=== PATIENT | male | born 1955 | race Caucasian/White ===

== ENCOUNTER → 2023-12-25 12:15 | Outpatient (REF) | payer OTHER, SELFPAY | LOC: HWRAD 12:15 | PROVIDERS: ATTENDING PHYSICIAN Colon & Rectal Surgery; FAMILY PHYSICIAN Family Medicine | DX: C20 Malignant neoplasm of rectum (principal) | CPT/HCPCS: 71260; 74177; Q9967 ==

== ENCOUNTER → 2024-01-15 11:55 | Outpatient (REF) | payer SELFPAY | LOC: CLAB 11:55 | PROVIDERS: ATTENDING PHYSICIAN Surgery | DX: C18.9 Malignant neoplasm of colon, unspecified (principal) | CPT/HCPCS: 88305 ==

== ENCOUNTER 2024-01-18 11:12 | Inpatient (IN) | payer OTHER, SELFPAY ==
[2024-01-17 08:57] VITALS: BMI 29.2
[2024-01-17 09:00] LABS: Hematocrit 36.7 % (39.0-52.0); Hemoglobin 12.5 g/dL (13.0-18.0); Mean Corp Hgb Conc. 34.1 g/dL (33.0-37.0); Mean Corpuscular Hgb 30.4 pg (27.0-31.0); Mean Corpuscular Volume 89.3 fL (80.0-94.0); Mean Platelet Volume 10.6 fL (7.4-10.4); Platelet Count 170 10^3/uL (130-400); Red Blood Cell Count 4.11 10^6/uL (4.70-6.10); Red Cell Dist. Width 13.2 % (11.5-14.5); White Blood Cell Count 6.7 10^3/uL (4.8-10.8)
[2024-01-17 09:08] LABS: INR 1.12; PT 14.5 Sec (11.4-14.6)
[2024-01-17 09:09] LABS: APTT 32.6 Sec (23.4-35.0)
[2024-01-17 09:45] LABS: Glycohemoglobin (HgbA1c) 5.2 % (4.0-5.6)
[2024-01-17 10:10] LABS: ALT (SGPT) 71 U/L (0-50); AST (SGOT) 80 U/L (17-59); Albumin 3.9 g/dl (3.5-5.0); Alkaline Phosphatase 465 U/L (38-126); Blood Urea Nitrogen 21 mg/dl (9-20); Calcium 9.1 mg/dl (8.4-10.2); Carbon Dioxide 27 mmol/L (22-30); Chloride 100 mmol/L (98-107); Estimated Creatinine Clearance 97 ml/min; Glucose 157 mg/dl (70-99); Potassium 4.2 mmol/L (3.5-5.1); Sodium 136 mmol/L (135-145); Total Bilirubin 1.6 mg/dl (0.2-1.3); Total Protein 7.5 g/dl (6.3-8.2); eGFR > 60.00
[2024-01-17 10:31] LABS: CEA 12.7 ng/ml
[2024-01-18] VITALS (14 sets, daily range): BP systolic 100–135; BP diastolic 50–92; BMI 29.2
[2024-01-18] MEDS: TYLENOL 1000 MG PO (11:42)
[2024-01-18] MEDS: ENTEREG 12 MG PO (11:43)
[2024-01-18] MEDS: HEPARIN 5000 UNITS SC (11:43)
[2024-01-18] MEDS: NORMOSOL-R/PLASMALYTE-A 1000 IV ×2 (11:44→17:37)
--- NOTE | 2024-01-18 16:07 | W.IMMPOSTOP ---
Surgical Immed Post Op Note
-
Primary Surgeon: Ryley Navas MD
Diet Kitchen Cook: GALE Palmer
Pre-op Diagnosis: Metastatic rectal cancer
Post-op Diagnosis: Same
Procedure Performed: Robotic sigmoid colostomy (Villalobos-type). liver biopsy and insertion of Infusaport
Anesthesia Type: GET
Specimen / Cultures: Liver biopsy
Estimated Blood Loss: 10cc
Complications: None
Operative Findings: Liver metastatases
Villalobos-type sigmoid colostomy
Infusaport with catheter tip in the SVC
Patient's daughter updated
[2024-01-18 17:38] LABS: GGTP 342 U/L (15-73); Magnesium 2.6 mg/dl (1.6-2.3); Phosphorus 4.2 mg/dl (2.5-4.5)
--- NOTE | 2024-01-18 17:38 | PTCARENOTE ---
Patient admitted to
--- NOTE | 2024-01-18 17:38 | PTCARENOTE ---
Patient admitted to unit at this time from PACU via stretcher s/p colostomy creation, liver biopsy, and LUE chest port placement. No pain at this time. Sapp draining, colostomy assessed, 4 lap sites and port assessed. Call woodard within reach.
[2024-01-18 17:45] LABS: INR 1.19; PT 15.2 Sec (11.4-14.6)
[2024-01-18 17:46] LABS: APTT 32.5 Sec (23.4-35.0)
[2024-01-18 17:51] LABS: Alcohol None Detected
[2024-01-18 18:14] LABS: B-Hydroxybutyrate 2.88 mmol/L (0.02-0.27)
[2024-01-18] MEDS: TYLENOL 650 MG PO (19:46)
[2024-01-18] MEDS: TORADOL 15 MG IV (19:46)
[2024-01-18] MEDS: THIAMINE INJECTION 100 MG IV (19:46)
[2024-01-18] MEDS: FOLVITE 1 MG PO (19:46)
[2024-01-18] MEDS: TUMS CHEWABLE TABLET 400 MG PO (22:02)
[2024-01-18] MEDS: ZOFRAN 4 MG IV (23:24)
[2024-01-19] MEDS: TYLENOL 650 MG PO ×6 (00:34→23:46)
[2024-01-19] MEDS: TORADOL 15 MG IV ×5 (00:35→23:47)
[2024-01-19 01:04] LABS: Urine Albumin Trace (Neg - Trace); Urine Bilirubin Negative (Negative); Urine Character Clear (Clear); Urine Color Yellow; Urine Glucose Negative (Negative); Urine Ketone Trace (Negative); Urine Leukocyte Trace (Negative); Urine Nitrite Negative (Negative); Urine Occult Blood 3+ (Negative); Urine Specific Gravity 1.025 (<1.030); Urine Urobilinogen 1+ (Neg - 1+)
[2024-01-19 01:22] LABS: Amphetamines Negative (Negative); Barbiturates Negative (Negative); Benzodiazepines Negative (Negative); Buprenorphine Negative (Negative); Cocaine Negative (Negative); Marijuana Negative (Negative); Methadone Negative (Negative); Methamphetamines Negative (Negative); Opiates Positive (Negative); Phencyclidine Negative (Negative); Tricyclic Antidepressants Negative (Negative)
[2024-01-19 01:55] LABS: Urine Amorphous Seen; Urine Hyaline Cast >15 /LPF (0-2); Urine Mucus Many; Urine Red Blood Cell >100 /HPF (0-2); Urine Squamous Cell >30 /LPF (Few)
[2024-01-19 01:56] LABS: Urine Bacteria Many (Negative); Urine White Cell 21-25 /HPF (0-5)
[2024-01-19 02:54] LABS: Fentanyl, Urine Positive (Negative)
[2024-01-19 03:19] VITALS: BP 118/72
[2024-01-19] MEDS: NORMOSOL-R/PLASMALYTE-A 1000 IV ×3 (03:29→22:23)
[2024-01-19] MEDS: TYLENOL PO (04:59)
[2024-01-19] MEDS: ATIVAN 1 MG PO (05:25)
[2024-01-19 05:37] VITALS: BMI 29.0
[2024-01-19 05:52] LABS: % Immature Granulocytes 0.3 % (0-0.5); % Lymphocytes 8.8 % (20.5-51.1); % Monocytes 8.5 % (1.7-9.3); % Neutrophils 82.4 % (42.2-75.2); Absolute Lymphocytes 0.5 10^3/uL (1.2-3.4); Absolute Monocytes 0.5 10^3/uL (0.1-0.6); Absolute Neutrophils 4.9 10^3/uL (1.4-6.5); Hematocrit 32.6 % (39.0-52.0); Mean Corp Hgb Conc. 33.7 g/dL (33.0-37.0); Mean Corpuscular Hgb 29.5 pg (27.0-31.0); Mean Corpuscular Volume 87.4 fL (80.0-94.0); Mean Platelet Volume 10.5 fL (7.4-10.4); Nucleated Red Blood Cells % 0 % (-); Platelet Count 172 10^3/uL (130-400); Red Blood Cell Count 3.73 10^6/uL (4.70-6.10); Red Cell Dist. Width 13.2 % (11.5-14.5); White Blood Cell Count 5.9 10^3/uL (4.8-10.8)
[2024-01-19 06:45] LABS: Blood Urea Nitrogen 28 mg/dl (9-20); Calcium 8.5 mg/dl (8.4-10.2); Carbon Dioxide 23 mmol/L (22-30); Chloride 102 mmol/L (98-107); Estimated Creatinine Clearance 111 ml/min; Glucose 159 mg/dl (70-99); Potassium 4.4 mmol/L (3.5-5.1); Sodium 139 mmol/L (135-145); eGFR > 60.00
[2024-01-19 07:25] VITALS: BP 122/63
[2024-01-19] MEDS: FOLVITE 1 MG PO (08:20)
[2024-01-19] MEDS: LIPITOR 40 MG PO (08:20)
[2024-01-19] MEDS: ENTEREG 12 MG PO ×2 (08:20→20:03)
[2024-01-19] MEDS: NORVASC 5 MG PO (08:20)
[2024-01-19] MEDS: ZESTRIL 5 MG PO (08:20)
[2024-01-19] MEDS: THIAMINE INJECTION 100 MG IV ×2 (08:21→20:04)
--- NOTE | 2024-01-19 10:50 | W.PN.CRS1 ---
Today's Communication / Plan
-
continue clears
lovenox
Assessment/Plan
-
POD#1 Robotic sigmoid colostomy (Villalobos-type). liver biopsy and insertion of Infusaport
-Continue on clears due to vomiting
-OOB as tolerated
-On MSAS protocol due to ETOH use
-D/C vieira in AM
-Continue IVFs
-OR pathology pending
-Pain control: Tylenol/Toradol standing, Dilaudid PRN
-Lovenox for DVT prophylaxis, TEDs/SCDS in place
Subjective Data
Procedure
Robotic sigmoid colostomy (Villalobos-type). liver biopsy and insertion of Infusaport (metastatic rectal cancer)
Subjective Data
Date of Service: January 19, 2024
Patient had an episode of vomiting overnight. His pain is controlled. He has no other complaints.
Objective Data
-
Vital Signs
Temp Pulse Resp BP Pulse Ox
97.6 F 58 16 122/63 97
01/19/24 07:25 01/19/24 07:25 01/19/24 07:25 01/19/24 07:25 01/19/24 10:17
Intake & Output
01/18/24 01/19/24 01/20/24
06:59 06:59 06:59
Intake Total 1780 / 1780
Output Total 1000 / 1000
Balance 780 / 780
Intake:
Oral fluids 480 / 480
IV fluids (Total) 1300 / 1300
normosol 100 / 100
Output:
Emesis 200 / 200
Liquid stool amount 300 / 300
Colostomy 300 / 300
Urine, Vieira 200 / 200
Urine, Voided 300 / 300
Lab Results
01/19/24 04:41
01/19/24 04:41
Physical Exam
-
General: No Acute Distress and AOx3
Abdomen: Soft, Non Distended, Non Tender and Other (colostomy warm and pink)
[2024-01-19 11:32] VITALS: BMI 29.0
[2024-01-19 11:45] VITALS: BP 115/60
[2024-01-19 12:36] VITALS: PULSE 75; O2SAT 96
--- NOTE | 2024-01-19 13:33 | WOUNDNOTE ---
[facility] Barrier # [id number], [facility] Pouch #[id number]
Call supply company (list in folder provided) for monthly Ostomy supplies after discharge (ask VN to order supplies while on service).
Follow up with surgeon.
Call [facility] RN nurse for ostomy pouching concerns or leakage problems [phone] or [phone] or [phone].
--- NOTE | 2024-01-19 13:38 | WOUNDNOTE ---
[facility] RN NOTE: Patient s/p robotic sigmoid colostomy (Villalobos-type) liver biopsy and insertion of Infusaport on 01/17. Met patient in room while he was sitting in chair. Patient was alert and cooperative. Patient said he will have the support of his
daughter and is planning on managing ostomy independently. Stoma is pink and slightly budded with a scant amount of drainage. Reviewed pouch cutting and emptying. Patient asked many appropriate questions and all questions were answered. TT with CM
and plan is for home with VN. Patient said he may go to his daughters home for awhile while he recovers. Ostomy supplies and information booklet at bedside. Discharge orders updated. Patient gave permission for secure start kit to be ordered. Will
follow up on 01/21 if patient has not been discharged.
[2024-01-19 15:05] VITALS: BP 111/65
--- NOTE | 2024-01-19 15:07 | CM ---
Met with pt at bedside
Pt reports he lives alone in an apartment (listed address, [address]); 12 steps to enter, FF set-up
Pt reports independent at baseline. Drives. Private pays to have someone do cleaning/shopping/laundry. Daughter involved
DME - commode
SNF/HH - denies past hx
Has ride at discharge
PCP - Man Celeste
Pharm - [facility]
Upon discharge pt planning to stay with daughter Gaby - address listed in contacts
New colostomy. Wound care recs Home care/RN - teaching
PT - recs - . OT eval pending
TT sent to [facility] for new referral
CM consult: substance abuse counseling
Discussed with pt. Offered referral to [facility] - pt declined. Reports he does not feel he has a problem with alcohol
Plan - anticipate home with [facility] when medically ready
--- NOTE | 2024-01-19 15:29 | VNURNOTE ---
Home Health Liaison met with patient at bedside to discuss [facility] nurse/therapy, visits, schedule and homebound status. Patient is agreeable and understands that visits at home will be 2-3 x per week to assess and teach ostomy medical management. [facility]
brochure provided with contact information. Patient is aware that [facility] will contact them for start of care in 1-2 days after discharge from . Patient will be staying at daughter's house, address included in referral. [facility] referral completed in
[facility].
[2024-01-19] MEDS: LOVENOX 40 MG SC (17:26)
[2024-01-19 23:16] VITALS: BP 102/59
[2024-01-20] MEDS: TYLENOL PO (04:30)
[2024-01-20] MEDS: TORADOL 15 MG IV ×3 (05:31→17:26)
[2024-01-20 05:41] LABS: % Basophils 0.3 % (0-2); % Eosinophils 1.8 % (0-6); % Immature Granulocytes 0.6 % (0-0.5); % Lymphocytes 24.6 % (20.5-51.1); % Monocytes 10.5 % (1.7-9.3); % Neutrophils 62.2 % (42.2-75.2); Absolute Eosinophils 0.1 10^3/uL (0-0.7); Absolute Lymphocytes 0.8 10^3/uL (1.2-3.4); Absolute Monocytes 0.4 10^3/uL (0.1-0.6); Absolute Neutrophils 2.1 10^3/uL (1.4-6.5); Hemoglobin 9.7 g/dL (13.0-18.0); Mean Corp Hgb Conc. 33.4 g/dL (33.0-37.0); Mean Corpuscular Hgb 30.3 pg (27.0-31.0); Mean Corpuscular Volume 90.6 fL (80.0-94.0); Mean Platelet Volume 10.7 fL (7.4-10.4); Nucleated Red Blood Cells % 0 % (-); Platelet Count 126 10^3/uL (130-400); Red Cell Dist. Width 13.3 % (11.5-14.5); White Blood Cell Count 3.4 10^3/uL (4.8-10.8)
[2024-01-20 06:00] VITALS: BMI 29.7
[2024-01-20 06:01] LABS: Blood Urea Nitrogen 21 mg/dl (9-20); Calcium 7.9 mg/dl (8.4-10.2); Carbon Dioxide 29 mmol/L (22-30); Chloride 102 mmol/L (98-107); Estimated Creatinine Clearance 111 ml/min; Glucose 83 mg/dl (70-99); Potassium 3.8 mmol/L (3.5-5.1); Sodium 139 mmol/L (135-145); eGFR > 60.00
[2024-01-20 07:02] VITALS: BP 119/62
[2024-01-20] MEDS: TYLENOL 650 MG PO ×4 (08:06→19:59)
[2024-01-20] MEDS: LIPITOR 40 MG PO (08:06)
[2024-01-20] MEDS: ENTEREG 12 MG PO ×2 (08:06→19:59)
[2024-01-20] MEDS: THIAMINE INJECTION 100 MG IV ×2 (08:07→20:00)
[2024-01-20] MEDS: NORVASC 5 MG PO (08:07)
[2024-01-20] MEDS: FOLVITE 1 MG PO (08:07)
[2024-01-20] MEDS: ZESTRIL 5 MG PO (08:07)
--- NOTE | 2024-01-20 10:18 | W.PN.GS2 ---
Addendum entered and electronically signed by Nam Flores MD 01/20/24 10:33:
pt seen and examined with EDUCATION PROGRAM SPECIALIST
wants to eat, some liquid ostomy output - not much air
AFVSS
sitting in chair at bedside
ABD: softly protuberant, stoma pink at skin, scant liquid stool in appliance
A/P: 68 y/o male POD#2 RAL sigmoid colostomy
vieira out - due to void
full liquid diet with crackers/toast
continue supportive care
followup H&H tomorrow
Original Note:
Today's Communication / Plan
-
FLD
voiding trial
Assessment / Plan
-
68 yo male with a h/o metastatic rectal CA now POD #2 Robotic sigmoid colostomy (owusu-type) with liver biopsy and infusaport insertion
AFVSS
Mild acute anemia likely secondary to expected losses and hemodilution
N/V yesterday but has been tolerating clears
Some outputs from stoma but not much flatus
--Advance to FLD
--Stoma consult for teaching
--vieira out for voiding trial, DTV
--c/w MSAS protocol
--c/w home meds
--trend labs
--scds while in bed, hold lovenox given acute anemia
Subjective Data
-
Date of Service: January 20, 2024
Patient seen and examined at bedside with Dr. Flores. Denies n/v today but notes he did vomit yesterday. Asking for a cheeseburger. Denies significant pain.
Objective Data
-
Intake and Output
01/19/24 01/20/24 01/21/24
06:59 06:59 06:59
Intake Total 1780 / 1780 3120 / 3120
Output Total 1000 / 1000 825 / 825
Balance 780 / 780 2295 / 2295
Intake:
Oral fluids 480 / 480 720 / 720
IV fluids (Total) 1300 / 1300 2400 / 2400
normosol 100 / 100
Output:
Emesis 200 / 200
Liquid stool amount 300 / 300
Colostomy 300 / 300
Urine, Vieira 200 / 200 825 / 825
Urine, Voided 300 / 300
Vital Signs
Temp Pulse Resp BP Pulse Ox
98.3 F 57 14 119/62 96
01/20/24 07:02 01/20/24 07:02 01/20/24 07:02 01/20/24 07:02 01/20/24 07:02
Lab Results
01/20/24 04:40
01/20/24 04:40
Calcium 7.9 mg/dl (8.4-10.2) L 01/20/24 04:40
Phosphorus 4.2 mg/dl (2.5-4.5) 01/18/24 17:15
Magnesium 2.6 mg/dl (1.6-2.3) H 01/18/24 17:15
Total Bilirubin 1.6 mg/dl (0.2-1.3) H 01/17/24 07:26
AST 80 U/L (17-59) H 01/17/24 07:26
ALT 71 U/L (0-50) H 01/17/24 07:26
Alkaline Phosphatase 465 U/L (38-126) H 01/17/24 07:26
Total Protein 7.5 g/dl (6.3-8.2) 01/17/24 07:26
Albumin 3.9 g/dl (3.5-5.0) 01/17/24 07:26
Physical Exam
-
NAD
ABD soft, ND, EDUCATION PROGRAM SPECIALIST
Stoma pink/viable with some dark outputs, no significant flatus in back
[2024-01-20 15:06] VITALS: BP 111/58
[2024-01-20 23:39] VITALS: BP 111/65
[2024-01-21] VITALS (57 sets, daily range): BP systolic 64–139; BP diastolic 42–80; BMI 29.8; BMI 30.2; BMI 30.6
[2024-01-21] MEDS: TYLENOL 650 MG PO ×5 (00:21→19:53)
[2024-01-21] MEDS: TORADOL 15 MG IV ×4 (00:22→17:44)
[2024-01-21] MEDS: ZOFRAN 4 MG IV (04:36)
[2024-01-21] MEDS: TYLENOL PO (04:37)
[2024-01-21] MEDS: ATIVAN 1 MG IV ×2 (05:06→07:38)
--- NOTE | 2024-01-21 05:42 | PTCARENOTE ---
Pt c/o nausea actively shaking with tremors and mildly sweating. BP 135/71 HR in the 130'-140's, temp 98.6 on 99% RA. MSAS scored 10 at this time and 1mg of Ativan given via protocol. TRADITIONAL [employer] HE[employer] PRACTITIONER notified of potential withdrawal symptoms. call worker Colorectal
surgeon notified and ordered NPO. Zofran given for nausea.
[2024-01-21] MEDS: ATIVAN 1 MG PO (06:23)
[2024-01-21 08:08] LABS: Glucose - Point of Care 95 mg/dl (70-99)
[2024-01-21] MEDS: NSS 250 IV (08:21)
--- NOTE | 2024-01-21 08:27 | PTCARENOTE ---
Addendum entered by Aracelis Gregory RN 01/21/24 10:32:
Pt tachypnic, tachycardic, and diaphoretic with mild tremors. Drowsy but arouses to verbal stimili. RN instructed to give Pt scheduled PO tylenol for temp 102.8, pt able to safely swallow with a sip a water. 02 93% on 2L NC. Pt denies increased
pain, abdomen soft to palpation.
Original Note:
Pt drowsy, falling asleep during care. MSAS scored 8. PRN ativan held for sedation and low BP. EKG obtained. Dr Flores and Camila Hogan Pa-c to bedside. IV fluid bolus ordered and hung. Pt to be upgraded to a higher level of care. Care ongoing.
--- NOTE | 2024-01-21 08:30 | W.PN.GS2 ---
Addendum entered and electronically signed by Nam Flores MD 01/21/24 08:56:
pt seen and examined with SALES ASSISTANT ENTERTAINMENT AND MEDIA; discussed with nursing this AM and called pts daughter to update and review
nausea reported this AM, fever and didnt feel well overnight
was on MSAS protocol and scores were elevated so was given IV ativan 1mg x 3 over the course of a couple hours - i was notified after given
pt somnolent but oriented, denies abdominal pain
states he felt shaky
F102.8, sinus tachycardia and borderline low BP
AAOx3, somnolent but responsive
ABD: soft, ND, mild TTP at incision sites, no R/R/G
ostomy functioning with brown stool in appliance
A/P: POD#3
after discussions with pt and his daughter he reportedly has not had alcohol in months and no prior h/o withdraw
stopped MSAS
transfer to IMU for monitoring
fever/infectious work up - torres cx, cxr, UA - empirically start zosyn
d/w hospitalist and consulted - appreciate assistance with care
EKG with sinus tach - will be checking trop
Original Note:
Today's Communication / Plan
-
Transfer to IMU
Infectious work up
Assessment / Plan
-
68 yo male with a h/o metastatic rectal CA now POD #3 Robotic sigmoid colostomy (owusu-type) with liver biopsy and infusaport insertion
Tachycardia and hypotension this am, febrile to 102.8
?ETOH withdrawal given MSAS scoring but denies ETOH use for several months which family confirms, somnolent s/p ativan but ox3 when awakened
Mild acute anemia likely secondary to expected losses and hemodilution
Some nausea overnight, reassuring abdominal exam. Stoma productive of stool.
Labs pending
--NPO
--Hospitalist consult to assist with management
--Transfer to IMU
--Check CXR/UA/blood cx & lactic acid
--Start IV ABX after cultures obtained
--IVF bolus x500ml given hypotension
--hold antihypertensives
--D/C MSAS
--EKG this am
--trend labs
--scds while in bed, lovenox on hold given anemia
Subjective Data
-
Date of Service: January 21, 2024
Patient seen and examined at bedside with Dr. Flores. Denies new pain. Some nausea overnight but resolved. Reports feeling the 'shakes'. Sleepy but awakens and answers questions appropriately.
Objective Data
-
Intake and Output
01/20/24 01/21/24 01/22/24
06:59 06:59 06:59
Intake Total 3120 / 3120 1989
Output Total 825 / 825 1150 / 1150
Balance 2295 / 2295 840 / 840
Intake:
Oral fluids 720 / 720 1989
IV fluids (Total) 2400 / 2400
Output:
Liquid stool amount 50 / 50
Colostomy 50 / 50
Urine, Sapp 825 / 825
Urine, Voided 1100 / 1100
Vital Signs
Temp Pulse Resp BP Pulse Ox
102.8 F H 119 30 91/53 95
01/21/24 08:13 01/21/24 08:13 01/21/24 08:13 01/21/24 08:13 01/21/24 08:13
Calcium 7.9 mg/dl (8.4-10.2) L 01/20/24 04:40
Phosphorus 4.2 mg/dl (2.5-4.5) 01/18/24 17:15
Magnesium 2.6 mg/dl (1.6-2.3) H 01/18/24 17:15
Total Bilirubin 1.6 mg/dl (0.2-1.3) H 01/17/24 07:26
AST 80 U/L (17-59) H 01/17/24 07:26
ALT 71 U/L (0-50) H 01/17/24 07:26
Alkaline Phosphatase 465 U/L (38-126) H 01/17/24 07:26
Total Protein 7.5 g/dl (6.3-8.2) 01/17/24 07:
Albumin 3.9 g/dl (3.5-5.0) 01/17/24 07:
Physical Exam
-
Diaphoretic, sleepy but awakens to stimulation and answers questions appropriately
ABD soft, minimal generalized tenderness to deep palpation, ND.
Stoma pink/viable, productive of brown stool
Incisions healing well, no erythema, glue intact
--- NOTE | 2024-01-21 08:53 | PTCARENOTE ---
Pt to be transferred to IMU, report given to Luisa FERNANDEZ. No questions. Care remains ongoing.
[2024-01-21 08:55] LABS: Hematocrit 34.6 % (39.0-52.0); Hemoglobin 11.7 g/dL (13.0-18.0); Mean Corp Hgb Conc. 33.8 g/dL (33.0-37.0); Mean Corpuscular Hgb 30.5 pg (27.0-31.0); Mean Corpuscular Volume 90.3 fL (80.0-94.0); Mean Platelet Volume 11.2 fL (7.4-10.4); Platelet Count 145 10^3/uL (130-400); Red Blood Cell Count 3.83 10^6/uL (4.70-6.10); Red Cell Dist. Width 13.3 % (11.5-14.5); White Blood Cell Count 1.6 10^3/uL (4.8-10.8)
[2024-01-21 09:10] LABS: Blood Urea Nitrogen 18 mg/dl (9-20); Calcium 8.2 mg/dl (8.4-10.2); Carbon Dioxide 25 mmol/L (22-30); Chloride 102 mmol/L (98-107); Estimated Creatinine Clearance 86 ml/min; Glucose 103 mg/dl (70-99); Potassium 4.1 mmol/L (3.5-5.1); Sodium 139 mmol/L (135-145); eGFR > 60.00
--- NOTE | 2024-01-21 09:24 | CON.HOSP ---
Consultation
-
Requesting Provider: Dr. Nam Flores
Performing Provider: Dr. Hesham Funez
Reason for Consultation: Fever, Tachycardia, Hypotension, Hypoxia
Family Physician
-
Family Physician: Man Celeste
Chief Complaint
-
Fever, Tachycardia, Hypotension, Hypoxia
History of Present Illness
68 y/o male with past medical history of hypertension, hyperlipidemia, history of recurrent urinary tract infections (treated on outpatient basis by Urgent Care centers in the past), metastatic rectal cancer, rheumatoid arthritis (not on any
RA-specific medications as per patient's daughter) had on 01/18/24 robotic sigmoid colostomy, as well as liver biopsy and insertion of [id number], performed by colorectal surgery thereafter patient was admitted and under general surgery service
post-op. This morning, nurse reported patient had fever, reported not feeling well. Patient received Ativan x 3 doses due to MSAS protocol (it was thought before that patient was a high risk of Alcohol withdrawal and therefore it was placed but
today patient's daughter confirmed he has not been drinking alcohol, that patient has never had alcohol withdrawal), on patient encounter patient denied any chest pain or shortness of breath.
After patient was moved to IMU, a rapid response was called around 9:50 AM, as he became more hypotensive with systolic blood pressures in the 60s, I went to see the patient again, in IMU and observed patient was able to respond to questions,
mentating okay, but tachypneic, tachycardic and hypotensive. I ordered additional normal saline intravenous fluids bolus with improvement in his blood pressure. I consulted parcel post carrier and transferred him to the intensive care unit where additional
intravenous fluids as well as vasopressors were ordered by parcel post carrier.
Medical History
Past Medical History
Past Medical History: Reports Other (As per HPI above)
Additional Past Surgical History:
Robotic sigmoid colostomy (Villalobos-type).
Liver biopsy and insertion of [id number].
Social History
Tobacco: Smoker
Alcohol: None
Family History
Family History: Unable to Obtain
Allergies / Home Medications
Allergies reflects when Allergies were last updated in [facility].
Home Medications with original date entered in [facility]
Allergy/Medication List:
Allergies
Allergy/AdvReac Type Severity Reaction Status Date / Time
No Known Allergies Allergy Verified 01/15/24 14:15
Home Medications
amlodipine 5 mg tablet 5 mg PO DAILY Blood Pressure 01/15/24
atorvastatin 40 mg tablet 40 mg PO DAILY High Cholesterol 01/15/24
lisinopril 5 mg tablet 5 mg PO DAILY Blood Pressure 01/15/24
multivitamin 1 tab PO DAILY Supplement 01/15/24
sodium sul 1.479 gram-potas ch 0.188 gram-magnes sul 0.225 gram tablet (Sutab) tab PO 01/17/24
Review of Systems
-
Unable to obtain full review of systems at this time due to: Acuity
Physical Exam
Vital Signs
Vital Signs
Temp Pulse Resp BP Pulse Ox
102.8 F H 119 30 91/53 95
01/21/24 08:13 01/21/24 08:13 01/21/24 08:13 01/21/24 08:13 01/21/24 08:13
Physical Exam
General: Respiratory Distress
HEENT: Normocephalic
Respiratory: Accessory Resp Muscle Use
Cardiac: S1/S2 and Tachycardia
GI: Soft, Non Tender and Other (Decreased bowel sounds. Colostomy bag in place with brown stool. Incision okay.)
Musculoskeletal: No Cyanosis
Skin: Warm and Dry
Neuro: Awake and Alert
Laboratory Results
-
Laboratory Results
01/21/24 06:33
01/21/24 06:33
PT 15.2 Sec (11.4-14.6) H 01/18/24 17:15
INR 1.19 01/18/24 17:15
APTT 32.5 Sec (23.4-35.0) 01/18/24 17:15
Total Bilirubin 1.6 mg/dl (0.2-1.3) H 01/17/24 07:26
AST 80 U/L (17-59) H 01/17/24 07:26
ALT 71 U/L (0-50) H 01/17/24 07:26
Alkaline Phosphatase 465 U/L (38-126) H 01/17/24 07:26
Impression / Plan
-
Assessment/Plan
Fever, Tachycardia, Hypotension, Hypoxia on January 21, 2024
Shock -- concern for Septic Shock from a possible UTI vs. post-surgical complication
History of recurrent urinary tract infections (treated on outpatient basis by Urgent Care centers in the past)
-IV fluid boluses given on 01/21/24
-Levophed started
-Continue to monitor in ICU
-Zosyn
-Blood cultures, UA, CXR (no new pneumonia)
-Check CT PE (due to post-op fever, hypoxia, hypotension, tachycardia, and elevated risk of VTE due to cancer) and CT abdomen/pelvis when possible
-Lower extremity dopplers without DVT
Acute Toxic Metabolic Encephalopathy
-Suspected from fever, possible infection, Ativan that was given
-After discussion over the phone with patient's daughter Gaby on 01/21/24, she confirmed patient has not been drinking alcohol -- MSAS protocol and prn Ativan stopped
Leukopenia
-Place on Neutropenic Precautions for now while monitoring CBC
Hypertension
Hyperlipidemia
Metastatic rectal cancer status post robotic sigmoid colostomy, as well as liver biopsy and insertion of Wrgukd-[id number]-Bodu
Rheumatoid arthritis (not on any RA-specific medications as per patient's daughter)
DVT PPx: Lovenox
Code Status: Full Code
Fever, Tachycardia, Hypotension, Hypoxia requiring vasopressors and placement in and monitoring in ICU is a high-risk encounter.
--- NOTE | 2024-01-21 09:35 | PTCARENOTE ---
Addendum entered by Cristina Salomon RN 01/21/24 10:08:
Dr. Garcia notified and Rapid response called
Original Note:
Received phone report from Betty FERNANDEZ and pt arrived to unit via bed. Transferred to IMU bed and room 3342. Pt is drowsy but esily arousable to voice. He states he got the 'rattles' and that is why he was transferred to IMU. Pt currently with dry warm
skin, oral temp is 98.6. resp rate in 30's but no obvious resp distress. heart rate sinus tach in 110-120. BP 78/47, Moving all extremities
[2024-01-21 09:43] LABS: Lactic Acid 1.6 mmol/L (0.7-2.0)
[2024-01-21 10:05] LABS: NT-proBNP 1010 pg/ml
--- NOTE | 2024-01-21 10:09 | RR ---
Addendum entered by Cristina Salomon RN 01/21/24 10:29:
Resp rate in 30s, pt 94% on 2 L NC, lungs decreased bilaterally.
Original Note:
A Rapid Response was called on this patient, please see Rapid Response note
Pt remains drowsy but responsive, alert and oriented x 3. SBP 70s and heart rate is 110s Rapid called and team arrived. IV bolus initiated and pt transferred to room 3363
[2024-01-21] MEDS: NSS 1000 IV ×2 (10:10→13:25)
[2024-01-21] MEDS: ZESTRIL PO (10:58)
[2024-01-21] MEDS: ZOSYN 50 IV ×3 (11:00→22:17)
[2024-01-21] MEDS: NORVASC PO (11:05)
[2024-01-21] MEDS: LIPITOR PO (11:06)
[2024-01-21] MEDS: THIAMINE INJECTION 100 MG IV (11:10)
[2024-01-21 11:19] LABS: Troponin I < 0.012 ng/ml
--- NOTE | 2024-01-21 11:41 | CON.INTV ---
Consultation
Consultation Request
Date/Time Consultation Requested: 01/21/2024
Date/Time Consultation Performed: 01/21/2024
Requesting Provider: Dr. Gillis
Performing Provider: Dr. Chris Mejia
Reason for Consultation: Septic shock
Medical History
-
History of Present Illness:
68-year-old man smoker, former alcohol use, history of hypertension, hyperlipidemia, recent diagnosis of stage IV rectal cell carcinoma-underwent robotic sigmoid colostomy, liver biopsy on 01/18/2024.
On postoperative day 3 developed fever, change in mental status. Initially given 3 doses of Ativan for possibility of alcohol withdrawal. In discussion with daughter he has never had alcohol withdrawal, he does not drink alcohol daily. Has not
drank alcohol 4 days prior to surgery.
Transferred to the critical care unit 01/21/2024 with hypotension. Patient is somnolent but arousable. Denies significant abdominal pain. Denies nausea or vomiting.
He smokes about 5 cigarettes/day. Has not smoked cigarettes in days.
He does have history of urinary problems since cancer diagnosis.
Past Medical History
Past Medical History: Other ( See assessment and plan)
Social History
Tobacco: Smoker (5 6 cigarettes/day. Used to smoke about a pack a day)
Alcohol: Other (3 or 4 times per week, few drinks at a time.)
Drug: None
Living: With Family
Family History
Family History: Other (Unable to obtain due to acute)
Allergies / Home Medications
Allergies
Allergy/AdvReac Type Severity Reaction Status Date / Time
No Known Allergies Allergy Verified 01/15/24 14:15
Home Medications
�Medication �Instructions �Recorded �Confirmed �Last Taken �Type
amlodipine 5 mg tablet 5 mg PO DAILY Blood Pressure 01/15/24 01/18/24 01/18/24 08:00 History
atorvastatin 40 mg tablet 40 mg PO DAILY High Cholesterol 01/15/24 01/18/24 01/15/24 History
lisinopril 5 mg tablet 5 mg PO DAILY Blood Pressure 01/15/24 01/18/24 01/15/24 History
multivitamin 1 tab PO DAILY Supplement 01/15/24 01/18/24 1 Week Ago History
~01/11/24
sodium sul 1.479 gram-potas ch tab PO 01/17/24 01/17/24 History
0.188 gram-magnes sul 0.225 gram
tablet (Sutab)
Review of Systems
-
History Source: Patient
All other systems: Negative unless noted
Vitals / Labs / Diagnostic Testing
Vital Signs
Temp Pulse Resp BP Pulse Ox
98.6 F 102 29 74/49 94
01/21/24 09:35 01/21/24 11:05 01/21/24 10:00 01/21/24 11:05 01/21/24 10:00
Lab Data
01/21/24 06:33
01/21/24 06:33
Diagnostic Testing:
Physical Exam
-
HEENT: Normocephalic
Cardiovascular: S1/S2
Respiratory: Clear and Non-Labored Respirations
GI: Soft, Distended and Other (Decreased bowel sounds. Colostomy bag in place. Incisions appear intact. Soft)
Neurology: No Motor Deficits and Other (Somnolent but arousable. Following commands)
Skin: Warm
General: Respiratory Distress (Mild at rest)
Assessment
-
68-year-old man who underwent robotic colostomy, liver biopsy for metastatic rectal cell carcinoma. Metastasis to lung. On 01/21/2024 developed fever, change in mental status, hypotension. Transferred to the critical care unit rehabilitation therapy aide
01/21/2024 for further care.
Shock-suspected possibly septic/undifferentiated-initial lactic acid 1.6
Possible sources include UTI-abnormal UA on 01/19/2024 noted.
Cannot rule out complications postsurgery
Negative troponin
proBNP 1010
EKG was sinus tachycardia
Leukopenia/fever
Toxic metabolic encephalopathy-likely delirium due to fever
Conditions present prior admission:
Hypertension
Hyperlipidemia
Smoker-currently 5 to 6 cigarettes/day
? Former heavy drinking
Assessment and plan:
Suspect sepsis/possibly evolving septic shock.
Hypotensive: Fluid resuscitation 30 mL/kg will be given.
After this liter bolus if blood pressures remain low then we will start vasopressors with Levophed.
Patient has a left subclavian port
Target mean arterial blood pressure 65 mmHg
Initial lactic acid is normal, will trend
Follow urinary output.
-
Discussed with daughter patient has not drank alcohol for days. Less likely alcohol withdrawal.
Hold any Ativan
Patient somnolent but aroused, following commands.
Hold narcotics for now if able
-
Sources of fever up to 102 �F-include: Possible UTI-abnormal UA 01/19/2024. Unclear if this was a clean-catch. It is bloody. But has many bacteria.
Agree with Zosyn
Chest x-ray is clear
-
Doubt acute pulmonary embolism given fevers/leukopenia.
Negative cardiac troponins. proBNP slightly elevated at 8000. No evidence for volume overload.
Trend troponins
EKG sinus tachycardia-likely due to fever.
On low rate supplemental oxygen. Wean as able
-
Abdominal exam not impressive, ostomy with liquid content, incisions are intact: CT abdomen pelvis has been ordered to rule out postoperative complications.
CT chest with PE protocol has been ordered per primary team.
Lower extremity Dopplers have been ordered
-
N.p.o.
Head of the bed elevated
DVT prophylaxis per surgical team
-
Hold antihypertensive
-
Discussed with daughter at the bedside by Dr. Mejia 01/21/2024.
-
Critical care statement: A total of 42 minutes of critical care time was provided for this patient today. This includes management of unstable vital signs, evaluation of the patient at bedside, reviewing the patient's pertinent medical records
including ventilator settings, arterial blood gases, radiographs, microbiology, laboratory evaluations and discussion with primary team, critical care nursing, and respiratory therapy.
[2024-01-21] MEDS: NSS 500 IV (11:54)
--- NOTE | 2024-01-21 12:00 | PTCARENOTE ---
Pt came to ICU from IMU approx 1030. Pt is oriented x3, but weak. HR ST, BP hypotensive 74/49. 2.5 liters of NSS boluses were given. Pt on 2l nc, RR elevated, O2 sat 98%, lobes diminished at bases. ABG and VS's reviewed with Dr Mejia. Pt with L
colostomy, draining brown liq. Complete assessment done and documented. Dr Mejia was able to speak to pt's daughter and updated.
[2024-01-21] MEDS: LEVOPHED 250 IV (13:00)
--- NOTE | 2024-01-21 13:12 | W.PN.SURGUPD ---
Surgical Update
Surgical Update
pt seen in followup. d/w nursing.
remains somnolent but responsive. denies pain
hypotension persists, tachycardia improving a bit
ABD remains soft, ND and with mild tenderness, no R/R/G
stoma pink
?UTI with urosepsis; abd exam benign, hgb stable, cardiac and pulmonary w/u unremarkable
bolus additional 1L NSS
starting Levophed for pressor support given multiple fluid bolus having been given and persistent hypotension
vieira for monitoring I/O's
repeat labs in PM
--- NOTE | 2024-01-21 13:30 | PTCARENOTE ---
Levophed was started at 2 mcg/min, and a 3rd liter of NSS infusing. Dr Lorenzana in to see pt also.
[2024-01-21 16:38] LABS: Urine Albumin Trace (Neg - Trace); Urine Bilirubin 1+ (Negative); Urine Character Slightly Cloudy (Clear); Urine Color Amber; Urine Glucose Negative (Negative); Urine Ketone Trace (Negative); Urine Leukocyte Trace (Negative); Urine Nitrite Negative (Negative); Urine Occult Blood 4+ (Negative); Urine Urobilinogen 2+ (Neg - 1+)
[2024-01-21 16:47] LABS: COVID-19 Antigen Negative (Negative)
[2024-01-21 16:54] LABS: Troponin I < 0.012 ng/ml
[2024-01-21 16:56] LABS: Urine Bacteria Moderate (Negative); Urine Squamous Cell 0-2 /LPF (Few); Urine White Cell 0-2 /HPF (0-5)
[2024-01-21 16:57] LABS: Urine Red Blood Cell 40-50 /HPF (0-2)
--- NOTE | 2024-01-21 17:22 | PTCARENOTE ---
Sapp cath was placed with sterile technique, drained 150 ml of dark jordana urine. U/A, urine culture sent. Covid and flu A+B obtained and sent to lab, along with blood culture set and trop. Levophed titrated thoughout day, keeping sys >90 goal.
Levophed presently at5 mcg/min. Core temp= 98.4.
[2024-01-21] MEDS: LOVENOX SC (17:42)
--- NOTE | 2024-01-21 19:00 | PTCARENOTE ---
Pt was taken down to ER CT scan of chest, abd, and pelvis. Levophed now at 4 mcg/min , BP 100/80, HR St 107. Pt more alert than this morning, oriented x3, MEN[place]ACA. Colostomy emptied for liq brown stool. All linen changed.
--- NOTE | 2024-01-21 19:30 | PTCARENOTE ---
received report from day RN, dual bedside med rec with RN, pt sleeping but easily aroused by voice, drowsy but Ox3, NSR and Sinus tach on monitor, diaphoretic, + radials doppler pedals, DWIGHT stockings and SCDS per order, lungs diminished and coarse
throughout, 2L NC SATs 95%, round belly soft tender to touch @ colostomy site, colostomy stoma red and budding output liq brown, hypoactive BS, thermistor vieira draining jordana output, x4 incisional sites on abd approximated with surgical adhesive, L
subQ port, 20G RFA, Levo gtt 4mcg/15ml, daughter updated by day RN before clocking out, pt able to make needs known, call woodard within reach, otherwise refer to documentation
--- NOTE | 2024-01-21 20:04 | W.PN.UPDATE ---
Update Note
Progress Note Update
01/21/24 at [address] Simmons Ct scan report available.
Ct 01/21/24 Chest/abdome/pelvis IMPRESSION: Examination is negative for pulmonary embolism.
Volume loss of the right hemithorax with elevation right hemidiaphragm. There is a fluid level within the right mainstem bronchus with opacification of the right upper lobe, middle lobe, and lower lobe bronchi, suggesting fluid and/or mucoid
impaction of the bronchi. Atelectasis, greater in the right lower lobe. Minimal bilateral posterior pleural effusions. Pulmonary metastatic disease.Diffusely distended fluid-filled esophagus. Suggestion of circumferential wall thickening involving
the distal esophagus, raising the possibility of esophagitis. Coronary artery calcifications and/or stents are present. Aortic valvular calcification, and please correlate with any clinical signs or symptoms that would suggest significant aortic
stenosis. Status post colostomy. Free intraperitoneal air as well as anterior extraperitoneal air is present, compatible with recent surgery. There is also air within the visualized anterior groin region. Small to moderate amount of ascites within
the right upper quadrant adjacent to the liver. Small amount of ascites adjacent to an enlarged spleen in the left upper quadrant. Fluid within the paracolic gutters with a small to moderate amount of free fluid within the pelvis. No evidence for
bowel obstruction. Hepatic metastatic disease, increasing from CT examination of December 25, 2023. 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 Thinning of the anterior right portal vein branch,
and thrombus involving this branch cannot be excluded. Intrahepatic biliary ductal dilation, mainly in the left lobe, which is likely due to intrahepatic obstruction from a metastatic lesion.
Results communicated with Dr. Mejia, electronic news gathering editor: recommendations received if ok with general surgery to start heparin gtt for anticoagulation and dc Lovenox for DVT prophylaxis. Dr. Flores, general surgeon called and updated on Ctscan results
and port vein thrombus concern for malignant thrombus, agreed with heparin gtt for DVT/PE protocol, NO BOLUSES. Will stop Lovenox and communicated new orders for heparin gtt and CTscan results to RN.
[2024-01-21] MEDS: HEPARIN 25000 UNITS/250 ML IV (20:18)
--- NOTE | 2024-01-21 20:20 | PTCARENOTE ---
ct revealed R portal vein thrombus, IV Hep started per order, gtts titrated per worklist, education provide to pt for anticoagulant
[2024-01-21] MEDS: ENTEREG PO (20:23)
[2024-01-21] MEDS: FOLVITE PO (20:23)
[2024-01-21 20:30] LABS: Hematocrit 33.9 % (39.0-52.0); Hemoglobin 11.6 g/dL (13.0-18.0); Mean Corp Hgb Conc. 34.2 g/dL (33.0-37.0); Mean Corpuscular Hgb 29.7 pg (27.0-31.0); Mean Corpuscular Volume 86.9 fL (80.0-94.0); Mean Platelet Volume 10.4 fL (7.4-10.4); Platelet Count 177 10^3/uL (130-400); Red Cell Dist. Width 13.6 % (11.5-14.5); White Blood Cell Count 16.5 10^3/uL (4.8-10.8)
[2024-01-21 20:31] LABS: APTT 35.1 Sec (23.4-35.0)
[2024-01-21 20:43] LABS: Blood Urea Nitrogen 26 mg/dl (9-20); Calcium 7.7 mg/dl (8.4-10.2); Carbon Dioxide 25 mmol/L (22-30); Chloride 105 mmol/L (98-107); Estimated Creatinine Clearance 87 ml/min; Glucose 105 mg/dl (70-99); Potassium 4.1 mmol/L (3.5-5.1); Sodium 140 mmol/L (135-145); eGFR > 60.00
[2024-01-21 20:47] LABS: Troponin I < 0.012 ng/ml
[2024-01-22] VITALS (58 sets, daily range): BP systolic 81–149; BP diastolic 48–137; BMI 31.0
[2024-01-22] MEDS: TORADOL 15 MG IV ×2 (00:28→05:50)
[2024-01-22] MEDS: TYLENOL 650 MG PO ×2 (00:29→03:28)
--- NOTE | 2024-01-22 00:30 | PTCARENOTE ---
systems reviewed, pt diaphoretic but afebrile, pt reports no pain, gtts titrated per worklist, otherwise refer to documentation.
[2024-01-22] MEDS: LEVOPHED 250 IV ×2 (01:38→14:27)
[2024-01-22 02:43] LABS: Hematocrit 33.4 % (39.0-52.0); Hemoglobin 11.5 g/dL (13.0-18.0); Mean Corp Hgb Conc. 34.4 g/dL (33.0-37.0); Mean Corpuscular Hgb 29.8 pg (27.0-31.0); Mean Corpuscular Volume 86.5 fL (80.0-94.0); Mean Platelet Volume 10.2 fL (7.4-10.4); Platelet Count 208 10^3/uL (130-400); Red Blood Cell Count 3.86 10^6/uL (4.70-6.10); Red Cell Dist. Width 13.7 % (11.5-14.5); White Blood Cell Count 20.6 10^3/uL (4.8-10.8)
[2024-01-22 02:55] LABS: APTT 104.1 Sec (23.4-35.0)
[2024-01-22 03:10] LABS: Troponin I < 0.012 ng/ml
[2024-01-22 03:12] LABS: Blood Urea Nitrogen 28 mg/dl (9-20); Calcium 7.8 mg/dl (8.4-10.2); Carbon Dioxide 25 mmol/L (22-30); Chloride 106 mmol/L (98-107); Estimated Creatinine Clearance 97 ml/min; Glucose 103 mg/dl (70-99); Potassium 4.4 mmol/L (3.5-5.1); Sodium 140 mmol/L (135-145); eGFR > 60.00
[2024-01-22] MEDS: ZOSYN 50 IV ×4 (03:28→21:10)
--- NOTE | 2024-01-22 03:43 | PTCARENOTE ---
systems reviewed, pt reports pain only when turning, tolerated turning unassisted, gtts titrated per worklist, hygiene per worklist, labs drawn, otherwise refer to documentation
--- NOTE | 2024-01-22 07:43 | W.PN.INTV ---
Today's Communication / Plan
Recommendations
Heparin drip
Abdominal flatplate
Antibiotics
Norepinephrine wean
Assessment
-
68-year-old man who underwent robotic colostomy, liver biopsy for metastatic rectal cell carcinoma. Metastasis to lung. On 01/21/2024 developed fever, change in mental status, hypotension. 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
01/21/2024 for further care.
Shock-suspected possibly septic/undifferentiated-initial lactic acid 1.6
Possible sources include UTI-abnormal UA on 01/19/2024 noted.
Cannot rule out complications postsurgery
Negative troponin
proBNP 1010
EKG was sinus tachycardia
Leukopenia/fever
Toxic metabolic encephalopathy-likely delirium due to fever
Portal vein thrombosis-heparin initiated
Metastatic rectal carcinoma
Conditions present prior admission:
Hypertension
Hyperlipidemia
Smoker-currently 5 to 6 cigarettes/day
? Former heavy drinking
Plan
Remains critically ill on pressors
Supplemental oxygen as needed
High flow oxygen if needed
Noninvasive ventilation if needed
Intubated mechanically ventilate if needed-patient full code
Nebulizers as needed-currently not bronchospastic
Aspiration precautions
Incentive spirometry
Mucus clearing devices
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
Lower extremity ultrasound 01/20/2014-no evidence for DVT bilaterally
Check cultures
Sputum culture
Empiric antibiotics-on Zosyn
Follow lactate
Decrease IV fluids
Norepinephrine and vasopressin as needed-wean as tolerated
Colorectal surgery following-correspondence reviewed
Abdominal flatplate 01/22/2024-moderate gaseous distention, air present in loops of small bowel some which are dilated
Postop day 4 robotic sigmoid colostomy, liver biopsy and placement of port
Liver biopsy pathology-pending
Nutrition per surgery
DVT prophylaxis-on heparin drip
Early mobilization
Family updates:
Discussed with daughter at the bedside by Dr. Mejia 01/21/2024.
Critical care statement: A total of 50 minutes of critical care time was provided for this patient today. This includes management of unstable vital signs, evaluation of the patient at bedside, reviewing the patient's pertinent medical records
including radiographs, pressor management, sepsis management, microbiology, laboratory evaluations, and discussion with primary team, consultants, pharmacy, nutrition, physical therapy, case management, charge nurse, critical care nursing, and
respiratory therapy.
Subjective Dataa
Subjective Data
Date of Service:
Date of Service: January 22, 2024
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
Subjective:
No complaints of worsening shortness of breath, still has some thick sputum-'green', no chest pain or abdominal pain
Review of Systems
General: Other (Per HPI)
Objective Data
Data Reviewed
Vital Signs / I&O / Oxygen:
Vital Signs
Temp Pulse Resp BP Pulse Ox
98.9 F 99 26 81/62 97
01/22/24 03:30 01/22/24 04:14 01/22/24 04:14 01/22/24 04:14 01/22/24 04:00
Intake and Output
01/21/24 01/22/24 01/23/24
06:59 06:59 06:59
Intake Total 1989 4286.5 / 4286.5
Output Total 1150 / 1150 950 / 950
Balance 840 / 840 3336.5 / 3336.5
SaO2 97
Nasal Cannula flow liters per 2
minute
Physical Exam
General: Respiratory Distress (n) and Comfortable
HEENT: Normocephalic, Anicteric and Moist Mucous Membranes
Cardiovascular: Regular Rhythm
Respiratory: Wheeze (n), Crackles, Rhonchi, Non-Labored Respirations, Accessory Resp Muscle Use (n) and Stridor (n)
GI: Soft, Distended and Non Tender
Neurology: Awake, Alert and No Motor Deficits
Skin: Warm, Good Color, Cyanosis (n), Jaundice (n) and Rash (n)
Labs/Micro/Reports
Lab Data
01/22/24 02:32
01/22/24 02:32
Laboratory Results
01/21/24 01/22/24
20:16 02:32
APTT 35.1 H 104.1 H
Microbiology
01/22/24 05:52 Nasal Swab Influenza Types A & B (MARKELL) - Final
Negative for Influenza A & B, NAAT
Negative results must be combined with clinical observations
and patient history.
Nucleic Acid Amplification test (NAAT)performed on the
[employer] platform.
--- NOTE | 2024-01-22 08:00 | PTCARENOTE ---
Received pt awake and alert. Left ACW subq port with Levophed., Right wrist #20g protective catheter with Heparin 1900units/hr. He is nauseas, refused antiemetic at this time. Weak pedal pulses, trace L/E edema. Lungs dim in the bases. Shallow
breathing. Use of IS explained to the pt, he returned demonstrated to 500ml's then 750ml's. Tolerating oxygen 3 liters nasal cannula, 94% pulse ox. I had explained that mostly what we do regarding SCD's, cough and deep breath, use of IS and turning
are all preventive measures. He verbalized his understanding. Left abdominal colostomy with stoma budded, moist and pink/red. Liquid green/brown stool collecting. He was informed that the bag attaches to the base like a Gamal rob lid and that he
will get further instructions prior to discharge have visiting nurses.
[2024-01-22] MEDS: HEPARIN 25000 UNITS/250 ML IV ×2 (08:27→21:10)
[2024-01-22 09:41] LABS: APTT 95.6 Sec (23.4-35.0)
--- NOTE | 2024-01-22 10:24 | PTCARENOTE ---
Guerita LOZADA TT'd regarding his need for an Indwelling catheter at this point, ambulation & PT/OT orders, and the completion of the abdominal film. The concerns regarding heparin drip being started for thrombus less than 24 hours ago is a
concern for PT.
--- NOTE | 2024-01-22 10:25 | W.PN.CRS1 ---
Today's Communication / Plan
-
as below
Assessment/Plan
-
POD 4 robotic sigmoid colostomy, liver biopsy, placement of Mediport; complicated by fever and hypotension, requiring Levophed, blood and urine cultures sent, started on broad-spectrum antibiotics; CTA showing no PE, significant volume loss of the
right lung associated with fluid/mucus impaction involving all 3 segmental bronchi, pulmonary metastatic disease, portal venous thrombus, small to moderate abdominal ascites; transferred to ICU
Tmax 101.0, HR 90s to 100s, levo 4 to 5 mcg
WBC 20.6 from 16.5, Hb 11.5 from 11.6, CR 0.9, UOP 725
� Septic shock of uncertain etiology, ddx includes pulmonary vs abdominal vs urosepsis; follow-up blood and urine cultures
� Concern for right lung mucous plugging, recommend aggressive IS, appreciate pulmonary
� PV thrombus, continue hep drip, trend CBC daily
� Continue IV Zosyn, follow-up cultures
� Evidence of distention, concerning for possible ileus; will order AXR, recommend n.p.o. with IVF
� Appreciate ICU/primary
Subjective Data
Procedure
Robotic sigmoid colostomy (Villalobos-type). liver biopsy and insertion of Infusaport (metastatic rectal cancer)
Subjective Data
Date of Service: January 22, 2024
No overnight events. Had a CT done yesterday showing PV thrombus and right bronchus occlusion, started on hep drip and nasal cannula.
Pain controlled.
Having some nausea, no vomits. Feeling uneasy with gas pains.
+ Ostomy�liquid bilious, + Sapp
Objective Data
-
Vital Signs
Temp Pulse Resp BP Pulse Ox
97.9 F 113 32 101/70 97
01/22/24 08:03 01/22/24 10:00 01/22/24 10:00 01/22/24 10:00 01/22/24 10:00
Intake & Output
01/21/24 01/22/24 01/23/24
06:59 06:59 06:59
Intake Total 1989 4286.5 / 4324.3 151.2 / 151.2
Output Total 1150 / 1150 950 / 950 225 / 225
Balance 840 / 840 3336.5 / 3374.3 -73.8 / -73.8
Intake:
Oral fluids 1989 220 / 220
IV fluids (Total) 3531.5 / 3569.3 151.2 / 151.2
NSS 3000 / 3000
hep 190 / 209 76 / 76
levophed 341.5 / 360.3 75.2 / 75.2
IV piggybacks 535 / 535
Output:
Liquid stool amount 50 / 50 225 / 225 225 / 225
Colostomy 50 / 50 225 / 225 225 / 225
Urine, Sapp 725 / 725
Urine, Voided 1100 / 1100
Other:
Number of unmeasured liquid
stools
Colostomy 1
Lab Results
01/22/24 02:32
01/22/24 02:32
Physical Exam
-
General: No Acute Distress and AOx3
Abdomen: Soft, Distended (Mildly to moderately distended, tympanitic) and Tender (Appropriately tender near incisions, no rebound or guarding)
Skin: Warm and Dry
Wound: No Signs of Infection
Data Reviewed
-
CT Scan: Image Reviewed and Report Reviewed
[2024-01-22] MEDS: LIPITOR PO (10:33)
[2024-01-22] MEDS: TYLENOL PO ×3 (10:33→17:29)
[2024-01-22] MEDS: ZOFRAN 4 MG IV (11:21)
[2024-01-22] MEDS: PROTONIX IV 40 MG IV (13:08)
[2024-01-22] MEDS: NSS (PRESERVATIVE FREE) 10 ML IV (13:08)
--- NOTE | 2024-01-22 13:40 | PTCARENOTE ---
Per surgery the Indwelling Sapp will remain in today. Strict NPO. Pt is aware. He was instructed on the importance of turning and repositioning for the prevention of bed sores, PNA, atelectasis, and to improve oxygenation, and bowel motility.
Importance of SCD's while in bed also stressed. He verbalized his understanding.
--- NOTE | 2024-01-22 14:00 | WOUNDNOTE ---
[facility] RN note: Patient's stoma pink and almost flush. OS is located along distal edge of stoma. Instructed patient pouch emptying and changing pouch using Cameron wafer # [id number], Robin seal and Margoth pouch # [id number]. Ostomy supplies left in room
(Margoth wafer # [id number], Robin seals and Cameron pouch # [id number]). Patient gave verbal permission to order a Margoth ostomy secure starter kit. t/c Spoke with daughter Leigh who will try to come in during the day on for next appliance
change. She will call [facility] correction officer penitent[facility] number with a time to meet on .
--- NOTE | 2024-01-22 14:30 | CM ---
CM following re: discharge planning.
Discussed in Rounds, reviewed pt's chart, met with pt. Per Rounds meeting, pt is POD 4 robotic sigmoid colostomy, liver biopsy, placement of Mediport, continue supportive care.
PT and OT will re-evaluate the pt to determine a level of care at discharge. From previous PT/OT evaluations - home PT/OT recommended.
A referral to [facility] noted. [facility] liaison following.
D/C plan: Home with [facility]. Awaiting for PT/OT updated evaluations.
CM will follow with discharge plan updates as hospitalization progresses
[2024-01-22] MEDS: D5/0.45%NACL 1000 IV (17:34)
--- NOTE | 2024-01-22 18:11 | W.PN.HOSP.TC ---
Today's Communication/Plan
-
continue to wean off Levophed
Assessment / Plan
Assessment / Plan
Fever, Tachycardia, Hypotension, Hypoxia on January 21, 2024
Shock -- concern for Septic Shock from a possible UTI vs. post-surgical complication
History of recurrent urinary tract infections (treated on outpatient basis by Urgent Care centers in the past)
-IV fluid boluses given on 01/21/24
-Levophed started, has been weaned down to 2 mcg/min
-Continue to monitor in ICU
-Zosyn
-Blood cultures NGTD, UA, CXR (no new pneumonia)
-Checked CT PE (due to post-op fever, hypoxia, hypotension, tachycardia, and elevated risk of VTE due to cancer) and CT abdomen/pelvis: Examination is negative for pulmonary embolism.
Volume loss of the right hemithorax with elevation right hemidiaphragm. There is a fluid level within the right mainstem bronchus with opacification of the right upper lobe, middle lobe, and lower lobe bronchi, suggesting fluid and/or mucoid
impaction of the bronchi.
Atelectasis, greater in the right lower lobe.
Minimal bilateral posterior pleural effusions.
Pulmonary metastatic disease.
Diffusely distended fluid-filled esophagus. Suggestion of circumferential wall thickening involving the distal esophagus, raising the possibility of esophagitis.
Coronary artery calcifications and/or stents are present. Aortic valvular calcification, and please correlate with any clinical signs or symptoms that would suggest significant aortic stenosis.
Status post colostomy. Free intraperitoneal air as well as anterior extraperitoneal air is present, compatible with recent surgery. There is also air within the visualized anterior groin region.
Small to moderate amount of ascites within the right upper quadrant adjacent to the liver. Small amount of ascites adjacent to an enlarged spleen in the left upper quadrant. Fluid within the paracolic gutters with a small to moderate amount of free
fluid within the pelvis.
No evidence for bowel obstruction.
Hepatic metastatic disease, increasing from CT examination of December 25, 2023.
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 Thinning of the anterior right portal vein branch, and thrombus involving this branch cannot be excluded.
Intrahepatic biliary ductal dilation, mainly in the left lobe, which is likely due to intrahepatic obstruction from a metastatic lesion.
-Lower extremity dopplers without DVT
Acute Toxic Metabolic Encephalopathy
better
-Suspected from fever, possible infection, Ativan that was given
-After discussion over the phone with patient's daughter Gaby on 01/21/24, she confirmed patient has not been drinking alcohol -- MSAS protocol and prn Ativan stopped
Leukopenia
-Place on Neutropenic Precautions for now while monitoring CBC
Hypertension
Hyperlipidemia
Metastatic rectal cancer status post robotic sigmoid colostomy, as well as liver biopsy and insertion of [id number]
Rheumatoid arthritis (not on any RA-specific medications as per patient's daughter)
DVT PPx: Lovenox
Code Status: Full Code
continue in ICU
Total Critical Care Time 45 minutes. I was immediately available to the patient and staff. I personally examined, reviewed labs, diagnostic images/reports, interpretations, treatment plans, discussed patient care with other providers and family
or caregivers (if patient is unable to make decisions), entered orders as appropriate and documented the medical record.
Fever, Tachycardia, Hypotension, Hypoxia requiring vasopressors and placement in and monitoring in ICU is a high-risk encounter.
reviewed with JIM Jensen
Anticipated Discharge: > 48 hours
Subjective/Interval History
-
Date of Service: January 22, 2024
Awake, alert, states he is real thirsty
Objective Data
-
Labs:
Laboratory Results
01/22/24
09:13
APTT 95.6 H
Vital Signs:
Vital Signs
Temp Pulse Resp BP Pulse Ox
98.0 F 96 20 90/55 95
01/22/24 15:54 01/22/24 17:30 01/22/24 17:30 01/22/24 17:30 01/22/24 17:30
I&O
01/21/24 01/22/24 01/23/24
06:59 06:59 06:59
Intake Total 1989 4286.5 / 4324.3 504.2 / 504.2
Output Total 1150 / 1150 950 / 1002 1063 / 1063
Balance 840 / 840 3336.5 / 3322.3 -558.8 / -558.8
Review of Systems
-
History Source: Patient and Coordinated Provider
Constitutional: Denies Fever (last fever was 101.0 on 01/20 @10:00)
EENT: Reports No Symptoms Reported
Respiratory: Reports No Symptoms; Denies Cough
Cardiac: Reports No Symptoms
Abdomen/GI: Reports Abdominal Pain (post op)
Physical Exam
-
General: Well Developed, Well Nourished and No Apparent Distress
HEENT: Normocephalic, Atraumatic and Moist Mucous Membranes
Respiratory: Clear to Auscultation; Negative Wheezes, Rales or Rhonchi
Cardiac: Regular Rhythm and S1/S2
GI: Soft, Normal Bowel Sounds and Ostomy
Musculoskeletal: No Clubbing, No Cyanosis and No Edema
Neuro: Awake, Alert and Oriented
--- NOTE | 2024-01-22 20:30 | PTCARENOTE ---
rec'd patient. assessment as documented. pt denies pain at this time. colostomy emptied for 400ml. levo and heparin gtt continue, PTT due in AM. on 1L NC. vieira intact. pt strict NPO. call woodard within reach, care ongoing.
[2024-01-23] VITALS (50 sets, daily range): BP systolic 79–143; BP diastolic 52–83; PULSE 88; BMI 30.6
--- NOTE | 2024-01-23 01:44 | PTCARENOTE ---
no UOP noted in vieira for 0100, pt assessed and soaked underneath with urine. balloon assessed, full 10cc noted. vieira exchanged. upon placement, pt actively peeing around catheter. bladder scanned for 70ml. blood tinged urine noted. ICU PRICING CONSULTANT made
aware, continue to monitor hourly.
[2024-01-23] MEDS: ZOSYN 50 IV ×4 (04:06→21:10)
[2024-01-23] MEDS: D5/0.45%NACL 1000 IV (04:06)
--- NOTE | 2024-01-23 04:18 | PTCARENOTE ---
AM labs sent. vieira draining without issue, hourly urine output monitored. drainage bloody, ICU ROCKET MOTOR TESTER aware. colostomy emptied. pt denies pain. care ongoing.
[2024-01-23 04:50] LABS: Hemoglobin 9.5 g/dL (13.0-18.0); Mean Corp Hgb Conc. 33.9 g/dL (33.0-37.0); Mean Corpuscular Hgb 29.5 pg (27.0-31.0); Mean Platelet Volume 10.6 fL (7.4-10.4); Platelet Count 161 10^3/uL (130-400); Red Blood Cell Count 3.22 10^6/uL (4.70-6.10); Red Cell Dist. Width 14.1 % (11.5-14.5); White Blood Cell Count 9.7 10^3/uL (4.8-10.8)
[2024-01-23 05:04] LABS: Blood Urea Nitrogen 25 mg/dl (9-20); Calcium 7.8 mg/dl (8.4-10.2); Carbon Dioxide 27 mmol/L (22-30); Chloride 107 mmol/L (98-107); Estimated Creatinine Clearance 98 ml/min; Glucose 144 mg/dl (70-99); Potassium 3.6 mmol/L (3.5-5.1); Sodium 142 mmol/L (135-145); eGFR > 60.00
[2024-01-23] MEDS: KCL 50 IV (05:51)
--- NOTE | 2024-01-23 08:27 | W.PN.INTV ---
Today's Communication / Plan
Recommendations
Continue antibiotics
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
Decrease IV fluids
Advance diet
Wean norepinephrine-if able to be weaned off then transfer out of ICU-call pulmonary if respiratory issues arise
Assessment
-
68-year-old man who underwent robotic colostomy, liver biopsy for metastatic rectal cell carcinoma. Metastasis to lung. On 01/21/2024 developed fever, change in mental status, hypotension. Transferred to the critical care unit certified orthotist practice manager
01/21/2024 for further care.
Shock-suspected possibly septic/undifferentiated-initial lactic acid 1.6
Possible sources include UTI-abnormal UA on 01/19/2024 noted.
Cannot rule out complications postsurgery
Negative troponin
proBNP 1010
EKG was sinus tachycardia
Leukopenia/fever
Toxic metabolic encephalopathy-likely delirium due to fever
Portal vein thrombosis-heparin initiated
Metastatic rectal carcinoma
Conditions present prior admission:
Hypertension
Hyperlipidemia
Smoker-currently 5 to 6 cigarettes/day
? Former heavy drinking
Plan
Remains critically ill on pressors-though currently being weaned and hopefully off in the next 24 hours
Supplemental oxygen as needed-attempt to wean
Nebulizers as needed-currently not bronchospastic
Aspiration precautions
Incentive spirometry
Mucus clearing devices
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
Lower extremity ultrasound 01/20/2014-no evidence for DVT bilaterally
Cultures reviewed
Influenza negative
Blood cultures negative
Urine cultures negative
Sputum culture-unable to produce
Empiric antibiotics-on Zosyn
Lactate trended
Decrease IV fluids-Hope to Today
Norepinephrine wean
Colorectal surgery following-correspondence reviewed
Abdominal flatplate 01/22/2024-moderate gaseous distention, air present in loops of small bowel some which are dilated
Postop day 5 robotic sigmoid colostomy, liver biopsy and placement of port
Liver biopsy pathology-metastatic adenocarcinoma consistent with colon primary, tumor extends to cauterized resection margins
Nutrition per surgery
DVT prophylaxis-on heparin drip
Early mobilization
If patient able to be weaned off pressors then transfer out of ICU-call pulmonary if respiratory issues arise
Family updates:
Discussed with daughter at the bedside by Dr. Mejia 01/21/2024.
Critical care statement: A total of 40 minutes of critical care time was provided for this patient today. This includes management of unstable vital signs, evaluation of the patient at bedside, reviewing the patient's pertinent medical records
including radiographs, pressor management, sepsis management, microbiology, laboratory evaluations, and discussion with primary team, consultants, pharmacy, nutrition, physical therapy, case management, charge nurse, critical care nursing, and
respiratory therapy.
Subjective Dataa
Subjective Data
Date of Service:
Date of Service: January 23, 2024
Chief Complaint: Winding Inspector And Tester Follow Up and Pulmonary Follow Up
Subjective:
Overall feels better, no complaints of shortness of breath at rest, productive cough, chest pain or abdominal pain
Review of Systems
General: Other (Per HPI)
Objective Data
Data Reviewed
Vital Signs / I&O / Oxygen:
Vital Signs
Temp Pulse Resp BP Pulse Ox
98.1 F 92 22 117/66 96
01/23/24 07:59 01/23/24 07:00 01/23/24 07:00 01/23/24 07:00 01/23/24 07:00
Intake and Output
01/22/24 01/23/24 01/24/24
06:59 06:59 06:59
Intake Total 4286.5 / 4324.3 1989.2 / 1989.2
Output Total 950 / 1002 8 / 2118
Balance 3336.5 / 3322.3 -128.8 / -128.8
SaO2 96
Nasal Cannula flow liters per 1
minute
Physical Exam
General: Respiratory Distress (n) and Comfortable
HEENT: Normocephalic, Anicteric and Moist Mucous Membranes
Cardiovascular: Regular Rhythm
Respiratory: Wheeze (n), Crackles, Rhonchi, Non-Labored Respirations, Accessory Resp Muscle Use (n) and Stridor (n)
GI: Soft, Distended and Non Tender
Neurology: Awake, Alert and No Motor Deficits
Skin: Warm, Good Color, Cyanosis (n), Jaundice (n) and Rash (n)
Labs/Micro/Reports
Lab Data
01/23/24 04:13
01/23/24 04:13
Laboratory Results
01/22/24 01/23/24
09:13 04:13
APTT 95.6 H 121.0 H
Microbiology
01/21/24 16:17 Blood/Venous Blood Culture - Preliminary
No Growth in 24 hours- Final report to follow
01/21/24 09:00 Blood/Venous Blood Culture - Preliminary
No Growth in 24 hours- Final report to follow
01/22/24 05:52 Nasal Swab Influenza Types A & B ([facility]KE[facility]) - Final
Negative for Influenza A & B, NAAT
Negative results must be combined with clinical observations
and patient history.
Nucleic Acid Amplification test (NAAT)performed on the
[employer] platform.
--- NOTE | 2024-01-23 08:30 | PTCARENOTE ---
Received pt awake and alert. Right wrist #20g protective catheter with Heparin @ 1700units/hr. Left ACW SQ port with ivf and Norepinephrine. Weak pedal pulses. Trace L/E edema. Knee-hi SCD's intact. Lungs dim in the right bas. 2 liters nasal cannula
& 95% pulse ox. RA pulse ox 92%. He was encouraged to use the IS so that he will not require oxygen again. Abdominal incisions (#4) ODALIS, approximated with surgical glue. Colostomy budded, draining green bilious stool. +BSx4. He denies any nausea or
vomiting. C/O hunger. Sapp catheter secured, draining dark jordana urine. Informed of the plan of care to get OOB and work with PT/OT. Unable to locate elevated chair. Safe environment maintained.
[2024-01-23] MEDS: NSS (PRESERVATIVE FREE) 10 ML IV (08:32)
[2024-01-23] MEDS: PROTONIX IV 40 MG IV (08:32)
[2024-01-23] MEDS: HEPARIN 25000 UNITS/250 ML IV (10:47)
[2024-01-23] MEDS: LEVOPHED 250 IV (10:49)
--- NOTE | 2024-01-23 11:54 | W.PN.CRS1 ---
Today's Communication / Plan
-
clears
continue heparin gtt
wean levophed
Assessment/Plan
-
POD 5 robotic sigmoid colostomy, liver biopsy, placement of Mediport; complicated by fever and hypotension, requiring Levophed, blood and urine cultures sent, started on broad-spectrum antibiotics; CTA showing no PE, significant volume loss of the
right lung associated with fluid/mucus impaction involving all 3 segmental bronchi, pulmonary metastatic disease, portal venous thrombus, small to moderate abdominal ascites; transferred to ICU
Tmax afebrile over the past 24 hours, weaning off levophed
WBC 9.7 from 20.6., Hgb 9.5 (11.5)
ostomy output: 1025ml
� Septic shock of uncertain etiology, ddx includes pulmonary vs abdominal vs urosepsis; follow-up blood and urine cultures
� Concern for right lung mucous plugging, recommend aggressive IS, appreciate pulmonary
� PV thrombus, continue hep drip, trend CBC daily
� Continue IV Zosyn, follow-up cultures
� Advance diet to clears
- Weaning off of Levophed
- Okay for OOB from our standpoint
� Appreciate ICU/primary
- Trend ostomy output
Subjective Data
Procedure
Robotic sigmoid colostomy (Villalobos-type). liver biopsy and insertion of Infusaport (metastatic rectal cancer)
Subjective Data
Date of Service: January 23, 2024
Patient states he has no nausea or vomiting. He has no pain. He is very thirsty. He did vomit yesterday but has no nausea or vomiting since.
Objective Data
-
Vital Signs
Temp Pulse Resp BP Pulse Ox
98.0 F 81 29 86/55 94
01/23/24 11:27 01/23/24 11:30 01/23/24 11:30 01/23/24 11:30 01/23/24 11:32
Intake & Output
01/22/24 01/23/24 01/24/24
06:59 06:59 06:59
Intake Total 4286.5 / 4324.3 1989.2 / 2101.2 810.0 / 810.0
Output Total 950 / 1002 2118 / 2188 315 / 315
Balance 3336.5 / 3322.3 -128.8 / -86.8 495.0 / 495.0
Intake:
Oral fluids 220 / 220 120 / 120
IV fluids (Total) 3531.5 / 3569.3 1889.2 / 2001.2 690.0 / 690.0
D5/0.45%NaCl 1,000 ml @ 80 mls/ 1120 / 1200 400 / 400
hr IV .[id number] [facility] Rx#:[id number]
NSS 3000 / 3000
hep 190 / 209 454 / 471 245 / 245
levophed 341.5 / 360.3 315.2 / 330.2 45.0 / 45.0
IV piggybacks 535 / 535 100 / 100
Output:
Emesis 200 / 200
Liquid stool amount 225 / 225 1025 / 1025
Colostomy 225 / 225 1025 / 1025
Urine, Sapp 725 / 777 893 / 963 290 / 290
Urine, Voided 25 / 25
Other:
Number of unmeasured liquid
stools
Colostomy 1
Lab Results
01/23/24 04:13
01/23/24 04:13
Physical Exam
-
General: No Acute Distress and AOx3
Abdomen: Soft, Non Distended, Non Tender and Other (colostomy warm and pink with output)
Skin: Warm and Dry
Incision: Clear, Dry, Intact
[2024-01-23 12:11] LABS: APTT 119.2 Sec (23.4-35.0)
--- NOTE | 2024-01-23 12:56 | PTCARENOTE ---
Guerita LOZADA notified that he is feeling 'tight' in his abdomen. His abdomen is distended, firm, 225ml green bilious stool from colostomy. Will keep pt NPO as ordered.
[2024-01-23 13:26] LABS: Hematocrit 27.2 % (39.0-52.0); Hemoglobin 9.2 g/dL (13.0-18.0)
[2024-01-23] MEDS: ZOFRAN 4 MG IV (14:23)
--- NOTE | 2024-01-23 14:59 | PTCARENOTE ---
1 assist to the chair from an elevated position. He was able to transfer holding onto the IV pole and reaching for the arm of the chair. He belched a enormous amount of air once upright and dangling at the bedside. Then stated he felt so much
better. Zofran was previously administered for nausea. He brushed his teeth and washed his face while in the chair. Safe environment maintained. He had spilled his urinal in the bed.
--- NOTE | 2024-01-23 15:15 | W.PN.HOSP.TC ---
Today's Communication/Plan
-
retry clear liquids as per surgery
continue to monitor labs
Assessment / Plan
Assessment / Plan
Fever, Tachycardia, Hypotension, Hypoxia on January 21, 2024
Shock -- concern for Septic Shock from a possible UTI vs. post-surgical complication
History of recurrent urinary tract infections (treated on outpatient basis by Urgent Care centers in the past)
-IV fluid boluses given on 01/21/24
-Levophed started, has been weaned down to off
-Continue to monitor in ICU
post op ileus slowly resolving
-Zosyn
-Blood cultures NGTD, UA - NGTD, CXR (no new pneumonia)
-Checked CT PE (due to post-op fever, hypoxia, hypotension, tachycardia, and elevated risk of VTE due to cancer) and CT abdomen/pelvis: Examination is negative for pulmonary embolism.
Volume loss of the right hemithorax with elevation right hemidiaphragm. There is a fluid level within the right mainstem bronchus with opacification of the right upper lobe, middle lobe, and lower lobe bronchi, suggesting fluid and/or mucoid
impaction of the bronchi.
Atelectasis, greater in the right lower lobe.
Minimal bilateral posterior pleural effusions.
Pulmonary metastatic disease.
Diffusely distended fluid-filled esophagus. Suggestion of circumferential wall thickening involving the distal esophagus, raising the possibility of esophagitis.
Coronary artery calcifications and/or stents are present. Aortic valvular calcification, and please correlate with any clinical signs or symptoms that would suggest significant aortic stenosis.
Status post colostomy. Free intraperitoneal air as well as anterior extraperitoneal air is present, compatible with recent surgery. There is also air within the visualized anterior groin region.
Small to moderate amount of ascites within the right upper quadrant adjacent to the liver. Small amount of ascites adjacent to an enlarged spleen in the left upper quadrant. Fluid within the paracolic gutters with a small to moderate amount of free
fluid within the pelvis.
No evidence for bowel obstruction.
Hepatic metastatic disease, increasing from CT examination of December 25, 2023.
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 Thinning of the anterior right portal vein branch, and thrombus involving this branch cannot be excluded.
Intrahepatic biliary ductal dilation, mainly in the left lobe, which is likely due to intrahepatic obstruction from a metastatic lesion.
-Lower extremity dopplers without DVT
Acute Toxic Metabolic Encephalopathy
resolved
-Suspected from fever, possible infection, Ativan that was given
-After discussion over the phone with patient's daughter Gaby on 01/21/24, she confirmed patient has not been drinking alcohol -- MSAS protocol and prn Ativan stopped
Leukopenia
-Place on Neutropenic Precautions for now while monitoring CBC
Hypertension
Hyperlipidemia
Metastatic rectal cancer status post robotic sigmoid colostomy, as well as liver biopsy and insertion of [id number]
Rheumatoid arthritis (not on any RA-specific medications as per patient's daughter)
DVT PPx: Lovenox
Code Status: Full Code
continue in ICU
reviewed with JIM Jensen
Anticipated Discharge: > 48 hours
Subjective/Interval History
-
Date of Service: January 23, 2024
As per nursing, tried clear liquids and was not able to tolerate
Objective Data
-
Labs:
Laboratory Results
01/23/24 01/23/24 01/23/24
04:13 11:50 13:14
WBC 9.7
Hgb 9.5 L 9.2 L
Hct 28.0 L 27.2 L
Plt Count 161 D
APTT 121.0 H 119.2 H
Sodium 142
Potassium 3.6
Chloride 107
Carbon Dioxide 27
BUN 25 H
Creatinine 0.9
Glucose 144 H
Calcium 7.8 L
01/23/24
18:45
WBC
Hgb
Hct
Plt Count
APTT Pending
Sodium
Potassium
Chloride
Carbon Dioxide
BUN
Creatinine
Glucose
Calcium
Vital Signs:
Vital Signs
Temp Pulse Resp BP Pulse Ox
98.0 F 86 26 96/55 94
01/23/24 11:27 01/23/24 15:00 01/23/24 15:00 01/23/24 14:30 01/23/24 14:00
I&O
01/22/24 01/23/24 01/24/24
06:59 06:59 06:59
Intake Total 4286.5 / 4324.3 1989.2 / 2101.2 1295.0 / 1295.0
Output Total 950 / 1002 2118 / 2188 540 / 540
Balance 3336.5 / 3322.3 -128.8 / -86.8 755.0 / 755.0
Review of Systems
-
History Source: Patient and Coordinated Provider
Constitutional: Denies Fever (last fever was 101.0 on 01/20 @10:00)
EENT: Reports No Symptoms Reported
Respiratory: Reports No Symptoms; Denies Cough
Cardiac: Reports No Symptoms
Abdomen/GI: Reports Abdominal Pain (post op)
Physical Exam
-
General: Well Developed, Well Nourished and No Apparent Distress
HEENT: Normocephalic, Atraumatic and Moist Mucous Membranes
Respiratory: Clear to Auscultation; Negative Wheezes, Rales or Rhonchi
Cardiac: Regular Rhythm and S1/S2
GI: Soft, Normal Bowel Sounds and Ostomy
Musculoskeletal: No Clubbing, No Cyanosis and No Edema
Neuro: Awake, Alert and Oriented
--- NOTE | 2024-01-23 17:07 | PTCARENOTE ---
Gas noted in colostomy. Stool orange. Pt had orange jello earlier today.
[2024-01-23] MEDS: D5/0.45%NSS with KCL 20 MEQ 1000 IV (18:17)
--- NOTE | 2024-01-23 18:18 | PTCARENOTE ---
pt asleep, desaturating to 88%. 2 liters nasal cannula applied.
[2024-01-23 18:46] LABS: APTT 86.9 Sec (23.4-35.0)
--- NOTE | 2024-01-23 20:00 | PTCARENOTE ---
rec'd patient. assessment as documented. oriented x3. denies pain. SR on monitor. levo gtt infusing to maintain MAP >65. on 2L NC. NPO. urinal at bedside. heparin gtt infusing, next PTT due at 0200. call woodard within reach, care ongoing.
[2024-01-24] VITALS (36 sets, daily range): BP systolic 85–145; BP diastolic 48–130; BMI 30.9
[2024-01-24] MEDS: HEPARIN 25000 UNITS/250 ML IV ×2 (00:04→17:01)
--- NOTE | 2024-01-24 04:05 | W.PN.INTV ---
Today's Communication / Plan
Recommendations
Wean norepinephrine
Wean oxygen
Increase activity
Continue antibiotics-finite course
Assessment
-
68-year-old man who underwent robotic colostomy, liver biopsy for metastatic rectal cell carcinoma. Metastasis to lung. On 01/21/2024 developed fever, change in mental status, hypotension. Transferred to the critical care unit log operations coordinator
01/21/2024 for further care.
Shock-suspected possibly septic/undifferentiated-initial lactic acid 1.6
Possible sources include UTI-abnormal UA on 01/19/2024 noted.
Cannot rule out complications postsurgery
Negative troponin
proBNP 1010
EKG was sinus tachycardia
Leukopenia/fever
Toxic metabolic encephalopathy-likely delirium due to fever
Portal vein thrombosis-heparin initiated
Metastatic rectal carcinoma
Conditions present prior admission:
Hypertension
Hyperlipidemia
Smoker-currently 5 to 6 cigarettes/day
? Former heavy drinking
Plan
Continues to be critically ill on pressors
Supplemental oxygen as needed-attempt to wean
Nebulizers as needed-currently not bronchospastic
Aspiration precautions
Incentive spirometry
Mucus clearing devices
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
Lower extremity ultrasound 01/20/2014-no evidence for DVT bilaterally
Cultures reviewed
Influenza negative
Blood cultures negative
Urine cultures negative
Sputum culture-unable to produce
Empiric antibiotics-on Zosyn
Lactate trended
Decrease IV fluids
Norepinephrine wean-currently on 4-Hope to wean off
Colorectal surgery following-correspondence reviewed
Abdominal flatplate 01/22/2024-moderate gaseous distention, air present in loops of small bowel some which are dilated
Postop day 5 robotic sigmoid colostomy, liver biopsy and placement of port
Liver biopsy pathology-metastatic adenocarcinoma consistent with colon primary, tumor extends to cauterized resection margins
Nutrition per surgery
DVT prophylaxis-on heparin drip
Early mobilization
If patient able to be weaned off pressors then transfer out of ICU-call pulmonary if respiratory issues arise
Family updates:
Discussed with daughter at the bedside by Dr. Mejia 01/21/2024.
Critical care statement: A total of 38 minutes of critical care time was provided for this patient today. This includes management of unstable vital signs, evaluation of the patient at bedside, reviewing the patient's pertinent medical records
including radiographs, pressor management, sepsis management, microbiology, laboratory evaluations, and discussion with primary team, consultants, pharmacy, nutrition, physical therapy, case management, charge nurse, critical care nursing, and
respiratory therapy.
Subjective Dataa
Subjective Data
Date of Service:
Date of Service: January 24, 2024
Chief Complaint: Motor Mechanic Follow Up and Pulmonary Follow Up
Subjective:
Still on some norepinephrine, tired, slept well, participated with physical therapy, no complaints of shortness of breath, chest pain or abdominal pain
Review of Systems
General: Other (Per HPI)
Objective Data
Data Reviewed
Vital Signs / I&O / Oxygen:
Vital Signs
Temp Pulse Resp BP Pulse Ox
97.8 F 88 23 127/62 94
01/23/24 23:21 01/24/24 01:30 01/24/24 01:30 01/24/24 01:30 01/24/24 01:30
Intake and Output
01/22/24 01/23/24 01/24/24
06:59 06:59 06:59
Intake Total 4286.5 / 4324.3 1989.2 / 2101.2 2650.0 / 2650.0
Output Total 950 / 1002 2118 / 2188 865 / 865
Balance 3336.5 / 3322.3 -128.8 / -86.8 1785.0 / 1785.0
SaO2 94
Nasal Cannula flow liters per 2
minute
Physical Exam
General: Respiratory Distress (n) and Comfortable
HEENT: Normocephalic, Anicteric and Moist Mucous Membranes
Cardiovascular: Regular Rhythm
Respiratory: Wheeze (n), Crackles, Rhonchi, Non-Labored Respirations, Accessory Resp Muscle Use (n) and Stridor (n)
GI: Soft, Distended and Non Tender
Neurology: Awake, Alert and No Motor Deficits
Skin: Warm, Good Color, Cyanosis (n), Jaundice (n) and Rash (n)
Labs/Micro/Reports
Laboratory Results
01/23/24 01/23/24 01/23/24
04:13 11:50 18:24
APTT 121.0 H 119.2 H 86.9 H
Microbiology
01/21/24 16:17 Blood/Venous Blood Culture - Preliminary
No Growth in 48 hours- Final report to follow
01/21/24 16:09 Urine Urine Culture - Preliminary
NO GROWTH
01/21/24 09:00 Blood/Venous Blood Culture - Preliminary
No Growth in 48 hours- Final report to follow
01/22/24 05:52 Nasal Swab Influenza Types A & B (MARKELL) - Final
Negative for Influenza A & B, NAAT
Negative results must be combined with clinical observations
and patient history.
Nucleic Acid Amplification test (NAAT)performed on the
[employer] platform.
[2024-01-24 04:22] LABS: Blood Urea Nitrogen 21 mg/dl (9-20); Calcium 7.9 mg/dl (8.4-10.2); Carbon Dioxide 28 mmol/L (22-30); Chloride 107 mmol/L (98-107); Estimated Creatinine Clearance 97 ml/min; Glucose 115 mg/dl (70-99); Potassium 3.3 mmol/L (3.5-5.1); Sodium 140 mmol/L (135-145); eGFR > 60.00
--- NOTE | 2024-01-24 04:35 | DOWNTIME ---
There was a Last [employer] Media Program Director Downtime on 01/24/2024 from 0100 to 01/24/2024 at 0355. Downtime documentation of patient's care, including medication administrations, has been reconciled in the electronic record per guidelines. Refer to the
patient's paper chart under the miscellaneous tab to see printed paper medication records and downtime forms.
[2024-01-24] MEDS: ZOSYN 50 IV ×4 (04:39→21:50)
[2024-01-24 05:07] LABS: % Basophils 0.3 % (0-2); % Eosinophils 5.7 % (0-6); % Immature Granulocytes 1.6 % (0-0.5); % Lymphocytes 10.5 % (20.5-51.1); % Monocytes 5.4 % (1.7-9.3); % Neutrophils 76.5 % (42.2-75.2); Absolute Eosinophils 0.4 10^3/uL (0-0.7); Absolute Immature Granulocytes 0.1 10^3/uL (0-0.05); Absolute Lymphocytes 0.7 10^3/uL (1.2-3.4); Absolute Monocytes 0.4 10^3/uL (0.1-0.6); Absolute Neutrophils 5.1 10^3/uL (1.4-6.5); Hematocrit 26.9 % (39.0-52.0); Hemoglobin 9.1 g/dL (13.0-18.0); Mean Corp Hgb Conc. 33.8 g/dL (33.0-37.0); Mean Corpuscular Volume 91.5 fL (80.0-94.0); Mean Platelet Volume 10.7 fL (7.4-10.4); Nucleated Red Blood Cells % 0 % (-); Platelet Count 145 10^3/uL (130-400); Red Blood Cell Count 2.94 10^6/uL (4.70-6.10); Red Cell Dist. Width 14.1 % (11.5-14.5); White Blood Cell Count 6.7 10^3/uL (4.8-10.8)
--- NOTE | 2024-01-24 05:16 | PTCARENOTE ---
AM labs sent. PTT therapeutic x2, next PTT due tmrw AM. heparin gtt remains at same rate. levo gtt titrated off, see flowsheet. colostomy emptied for 200ml. urinal at bedside, pt missed when using overnight, cleaned and repositioned. call woodard
within reach. care ongoing.
[2024-01-24 05:25] LABS: APTT 83.6 Sec (23.4-35.0)
[2024-01-24] MEDS: KCL 160 MEQ IV (05:52)
[2024-01-24] MEDS: D5/0.45%NSS with KCL 20 MEQ 1000 IV (08:12)
--- NOTE | 2024-01-24 11:00 | W.PN.HOSP.TC ---
Today's Communication/Plan
-
continue IVF
follow labs
retry clear liquids if okay with surgery
Assessment / Plan
Assessment / Plan
Fever, Tachycardia, Hypotension, Hypoxia on January 21, 2024
Shock -- concern for Septic Shock from a possible UTI vs. post-surgical complication
History of recurrent urinary tract infections (treated on outpatient basis by Urgent Care centers in the past)
-IV fluid boluses given on 01/21/24
-Levophed started, had been weaned down to off, needed to be resumed 01/22 at 3PM at 2 mcg/min, was stopped at 5AM
-Continue to monitor in ICU
post op ileus slowly resolving
was unable to tolerate clear liquids on 01/22, await reeval by CRS to retry
-Zosyn
-Blood cultures NGTD, UA - NGTD, CXR (no new pneumonia)
-Checked CT PE (due to post-op fever, hypoxia, hypotension, tachycardia, and elevated risk of VTE due to cancer) and CT abdomen/pelvis: Examination is negative for pulmonary embolism.
Volume loss of the right hemithorax with elevation right hemidiaphragm. There is a fluid level within the right mainstem bronchus with opacification of the right upper lobe, middle lobe, and lower lobe bronchi, suggesting fluid and/or mucoid
impaction of the bronchi.
Atelectasis, greater in the right lower lobe.
Minimal bilateral posterior pleural effusions.
Pulmonary metastatic disease.
Diffusely distended fluid-filled esophagus. Suggestion of circumferential wall thickening involving the distal esophagus, raising the possibility of esophagitis.
Coronary artery calcifications and/or stents are present. Aortic valvular calcification, and please correlate with any clinical signs or symptoms that would suggest significant aortic stenosis.
Status post colostomy. Free intraperitoneal air as well as anterior extraperitoneal air is present, compatible with recent surgery. There is also air within the visualized anterior groin region.
Small to moderate amount of ascites within the right upper quadrant adjacent to the liver. Small amount of ascites adjacent to an enlarged spleen in the left upper quadrant. Fluid within the paracolic gutters with a small to moderate amount of free
fluid within the pelvis.
No evidence for bowel obstruction.
Hepatic metastatic disease, increasing from CT examination of December 25, 2023.
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 Thinning of the anterior right portal vein branch, and thrombus involving this branch cannot be excluded.
Intrahepatic biliary ductal dilation, mainly in the left lobe, which is likely due to intrahepatic obstruction from a metastatic lesion.
-Lower extremity dopplers without DVT
Acute Toxic Metabolic Encephalopathy
resolved
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
-Suspected from fever, possible infection, Ativan that was given
-After discussion over the phone with patient's daughter Gaby on 01/21/24, she confirmed patient has not been drinking alcohol -- MSAS protocol and prn Ativan stopped
Leukopenia on 01/20, then peaked at 10.6 on 01/21-->01/22 9.7-->01/23 6.7
Hypertension
Hypokalemia on K supplement
Hypocalcemia mild, will recheck tomorrow, consider supplement
Hyperlipidemia
Metastatic rectal cancer status post robotic sigmoid colostomy, as well as liver biopsy and insertion of [id number]
Patient's oncologist is Dr. Dorantes, has appt on 01/30
Rheumatoid arthritis (not on any RA-specific medications as per patient's daughter)
Code Status: Full Code
continue in ICU
reviewed with JIM Jensen 01/23
Anticipated Discharge: > 48 hours
Subjective/Interval History
-
Date of Service: January 24, 2024
Awake, alert, conversant
Objective Data
-
Labs:
Laboratory Results
01/24/24
02:45
WBC 6.7
Hgb 9.1 L
Hct 26.9 L
Plt Count 145
APTT 83.6 H
Sodium 140
Potassium 3.3 L
Chloride 107
Carbon Dioxide 28
BUN 21 H
Creatinine 0.9
Glucose 115 H
Calcium 7.9 L
Vital Signs:
Vital Signs
Temp Pulse Resp BP Pulse Ox
98.4 F 61 22 90/52 98
01/24/24 07:00 01/24/24 07:00 01/24/24 07:00 01/24/24 07:00 01/24/24 07:00
I&O
01/23/24 01/24/24 01/25/24
06:59 06:59 06:59
Intake Total 1989.2 / 2101.2 2965.0 / 3060.0 380 / 380
Output Total 2118 / 2188 1140 / 1140
Balance -128.8 / -86.8 1825.0 / 1920 380 / 380
Review of Systems
-
History Source: Patient and Coordinated Provider
Constitutional: Denies Fever (last fever was 101.0 on 01/20 @10:00)
EENT: Reports No Symptoms Reported
Respiratory: Reports No Symptoms; Denies Cough
Cardiac: Reports No Symptoms
Abdomen/GI: Reports Abdominal Pain (post op)
Physical Exam
-
General: Well Developed, Well Nourished and No Apparent Distress
HEENT: Normocephalic, Atraumatic and Moist Mucous Membranes
Respiratory: Clear to Auscultation; Negative Wheezes, Rales or Rhonchi
Cardiac: Regular Rhythm and S1/S2
GI: Soft, Normal Bowel Sounds, Tender (post op, but appears less tender than yesterday) and Ostomy
Musculoskeletal: No Clubbing, No Cyanosis and No Edema
Neuro: Awake, Alert and Oriented
--- NOTE | 2024-01-24 11:02 | W.PN.CRS1 ---
Today's Communication / Plan
-
clear liquids
Assessment/Plan
-
POD 6 robotic sigmoid colostomy, liver biopsy, placement of Mediport; complicated by fever and hypotension, requiring Levophed, blood and urine cultures sent, started on broad-spectrum antibiotics; CTA showing no PE, significant volume loss of the
right lung associated with fluid/mucus impaction involving all 3 segmental bronchi, pulmonary metastatic disease, portal venous thrombus, small to moderate abdominal ascites; transferred to ICU
Tmax afebrile over the past 24 hours, off of Levophed since 5am
WBC 6.7 from 9.7, hgb 9.1 from 9.2
ostomy output: 350ml
� Septic shock of uncertain etiology, ddx includes pulmonary vs abdominal vs urosepsis; follow-up blood and urine cultures
� Appreciate pulmonology
� PV thrombus, continue hep drip, trend CBC daily
� Continue IV Zosyn, follow-up cultures
� Advance diet to clears
- Okay for OOB from our standpoint
� Appreciate ICU/hospitalist
- Trend ostomy output
- OKay to step down from ICU later if maintains pressers off of levophed
Subjective Data
Procedure
Robotic sigmoid colostomy (Villalobos-type). liver biopsy and insertion of Infusaport (metastatic rectal cancer)
Subjective Data
Date of Service: January 24, 2024
Patient states he feels 'not bad'. He is hungry. He has no nausea. He has been burping. He is doing better today per the nurse.
Objective Data
-
Vital Signs
Temp Pulse Resp BP Pulse Ox
98.4 F 61 22 90/52 98
01/24/24 07:00 01/24/24 07:00 01/24/24 07:00 01/24/24 07:00 01/24/24 07:00
Intake & Output
01/23/24 01/24/24 01/25/24
06:59 06:59 06:59
Intake Total 1989.2 / 2101.2 2965.0 / 3060.0 380 / 380
Output Total 2118 / 2188 1140 / 1140
Balance -128.8 / -86.8 1825.0 / 1920 380 / 380
Intake:
Oral fluids 240 / 240
IV fluids (Total) 1889.2 / 2001.2 2625.0 / 2720.0 380 / 380
D5/0.45%NSS with KCL 20 MEQ 20 1040 / 1120 320 / 320
meq In 1,000 ml @ 80 mls/hr IV
.[id number] SURENDRA Rx#:[id number]
D5/0.45%NaCl 1,000 ml @ 80 mls/ 1120 / 1200 800 / 800
hr IV .[id number] SURENDRA Rx#:[id number]
hep 454 / 471 545 / 560 60 / 60
levophed 315.2 / 330.2 240.0 / 240.0
IV piggybacks 100 / 100 100 / 100
Output:
Emesis 200 / 200
Liquid stool amount 1025 / 1025 350 / 350
Colostomy 1025 / 1025 350 / 350
Urine, Sapp 893 / 963 290 / 290
Urine, Voided 500 / 500
Other:
Number of approximated MODERATE 1
amounts of urine
How many times incontinent 1
MODERATE amount urine
Lab Results
01/24/24 02:45
01/24/24 02:45
Physical Exam
-
General: No Acute Distress and AOx3
Abdomen: Soft, Non Distended, Non Tender and Other (colostomy warm and pink)
Skin: Warm and Dry
[2024-01-24] MEDS: PROTONIX IV 40 MG IV (11:36)
[2024-01-24] MEDS: NSS (PRESERVATIVE FREE) 10 ML IV (11:36)
--- NOTE | 2024-01-24 12:44 | PTCARENOTE ---
Remains oOB to the chair. Tremulous extremities and head at times. Breath siunds improved slightly in the right base however he remains dim to absent in the left base. He stated he was using the IS. Denies cough. Tolerating liquids, however no
drainage from colostomy. Rougon moist and red.
--- NOTE | 2024-01-24 15:00 | PTCARENOTE ---
Dr. Holcomb notified of abdominal distention w/o nausea since clears liquid diet restarted this morning. Only 60ml interiano brown stool from colosotomy all day. Tad moist and red. Will continue to monitor and notify for vomiting.
--- NOTE | 2024-01-24 17:10 | PTCARENOTE ---
Assisted to bed. Repositioned on his right side. No output from colostomy. Gris[place]old red, moist. Abdomen remains distended.
--- NOTE | 2024-01-24 18:26 | PTCARENOTE ---
Pt voided 100ml's bloody urine, small clot noted. Post void bladder scan was zero. No output from colostomy.
--- NOTE | 2024-01-24 20:00 | PTCARENOTE ---
Assumed care of patient at 1900, nursing assessment completed and as documented. Patient Ox3, on RA lungs diminished at bases, sats 93-95%. NSR to SB on monitor rates 50-60's, weak pedal pulses present bilaterally, trace edema to bilateral lower
extremities. SBP 80-90's, MAP 65-67, patient asymptomatic at this time. IVF order discontinued, x1 dose of Midodrine ordered per DETENTION OFFICER, see JUN. Patient with colostomy, site C/D/I, stoma red and slightly budded, output minimal with brown/green/liquid
in bag. Hypoactive bowel sounds, abdomen round, obese, soft but full - patient admits to feeling bloated/full. Voiding jordana urine in urinal. Heparin infusing at 15ml/hr via R F/A PIV, accessed subq port patent and with blood return. Call woodard
within reach, repositioned for comfort, VSS, care ongoing.
[2024-01-24] MEDS: D5/0.45%NSS with KCL 20 MEQ IV (21:11)
[2024-01-24] MEDS: ProAmatine 5 MG PO (21:50)
[2024-01-25] VITALS (27 sets, daily range): BP systolic 71–114; BP diastolic 38–93; PULSE 64; O2SAT 95; BMI 31.0
[2024-01-25] MEDS: ZOSYN 50 IV ×4 (04:40→21:08)
[2024-01-25 04:49] LABS: % Basophils 0.3 % (0-2); % Eosinophils 5.7 % (0-6); % Immature Granulocytes 1.3 % (0-0.5); % Lymphocytes 23.3 % (20.5-51.1); % Monocytes 11.3 % (1.7-9.3); % Neutrophils 58.1 % (42.2-75.2); Absolute Eosinophils 0.2 10^3/uL (0-0.7); Absolute Lymphocytes 0.7 10^3/uL (1.2-3.4); Absolute Monocytes 0.4 10^3/uL (0.1-0.6); Absolute Neutrophils 1.9 10^3/uL (1.4-6.5); Hematocrit 25.4 % (39.0-52.0); Hemoglobin 8.2 g/dL (13.0-18.0); Mean Corp Hgb Conc. 32.3 g/dL (33.0-37.0); Mean Corpuscular Hgb 28.9 pg (27.0-31.0); Mean Corpuscular Volume 89.4 fL (80.0-94.0); Mean Platelet Volume 10.6 fL (7.4-10.4); Nucleated Red Blood Cells % 0 % (-); Platelet Count 110 10^3/uL (130-400); Red Blood Cell Count 2.84 10^6/uL (4.70-6.10); White Blood Cell Count 3.2 10^3/uL (4.8-10.8)
[2024-01-25 04:55] LABS: APTT 75.7 Sec (23.4-35.0)
[2024-01-25 05:38] LABS: ALT (SGPT) 53 U/L (0-50); AST (SGOT) 65 U/L (17-59); Albumin 2.1 g/dl (3.5-5.0); Alkaline Phosphatase 369 U/L (38-126); Blood Urea Nitrogen 18 mg/dl (9-20); Calcium 7.8 mg/dl (8.4-10.2); Carbon Dioxide 25 mmol/L (22-30); Chloride 107 mmol/L (98-107); Direct Bilirubin 0.4 mg/dl (0.0-0.4); Estimated Creatinine Clearance > 125 ml/min; Glucose 84 mg/dl (70-99); Potassium 3.7 mmol/L (3.5-5.1); Sodium 139 mmol/L (135-145); Total Bilirubin 0.9 mg/dl (0.2-1.3); Total Protein 4.9 g/dl (6.3-8.2); eGFR > 60.00
--- NOTE | 2024-01-25 07:28 | W.PN.INTV ---
Today's Communication / Plan
Recommendations
Pressors weaned
Advance diet
Finite course of antibiotics
Outpatient oncology follow-up
PT/OT
Transfer out of ICU-call pulmonary if respiratory issues arise
Assessment
-
68-year-old man who underwent robotic colostomy, liver biopsy for metastatic rectal cell carcinoma. Metastasis to lung. On 01/21/2024 developed fever, change in mental status, hypotension. Transferred to the critical care unit special education professor
01/21/2024 for further care.
Shock-suspected possibly septic/undifferentiated-initial lactic acid 1.6
Possible sources include UTI-abnormal UA on 01/19/2024 noted.
Cannot rule out complications postsurgery
Negative troponin
proBNP 1010
EKG was sinus tachycardia
Leukopenia/fever
Toxic metabolic encephalopathy-likely delirium due to fever
Portal vein thrombosis-heparin initiated
Metastatic rectal carcinoma
Conditions present prior admission:
Hypertension
Hyperlipidemia
Smoker-currently 5 to 6 cigarettes/day
? Former heavy drinking
Plan
Continues to be critically ill on pressors
Supplemental oxygen as needed-attempt to wean
Nebulizers as needed-currently not bronchospastic
Aspiration precautions
Incentive spirometry
Mucus clearing devices
CT chest abdomen and pelvis 01/21/2024-negative for pulmonary embolism, right portal vein thrombus, likely malignant thrombus-heparin initiated-eventually changed to oral anticoagulant
Lower extremity ultrasound 01/20/2014-no evidence for DVT bilaterally
Cultures reviewed
Influenza negative
Blood cultures negative
Urine cultures negative
Sputum culture-unable to produce
Empiric antibiotics-on Zosyn
Lactate trended
Decrease IV fluids
Norepinephrine wean-weaned to off
Colorectal surgery following-correspondence reviewed
Abdominal flatplate 01/22/2024-moderate gaseous distention, air present in loops of small bowel some which are dilated
Postop day 6 robotic sigmoid colostomy, liver biopsy and placement of port
Liver biopsy pathology-metastatic adenocarcinoma consistent with colon primary, tumor extends to cauterized resection margins
Nutrition per surgery-advance diet per surgery
DVT prophylaxis-on heparin drip-eventually changed over to oral anticoagulant
Early mobilization
If patient able to be weaned off pressors then transfer out of ICU-call pulmonary if respiratory issues arise
Family updates:
Discussed with daughter at the bedside by Dr. Mejia 01/21/2024.
Critical care statement: A total of 35 minutes of critical care time was provided for this patient today. This includes management of unstable vital signs, evaluation of the patient at bedside, reviewing the patient's pertinent medical records
including radiographs, pressor management, sepsis management, microbiology, laboratory evaluations, and discussion with primary team, consultants, pharmacy, nutrition, physical therapy, case management, charge nurse, critical care nursing, and
respiratory therapy.
Subjective Dataa
Subjective Data
Date of Service:
Date of Service: January 25, 2024
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
Subjective:
Feels better, somewhat hungry, diet will be advanced, no shortness of breath, chest pain or abdominal pain
Review of Systems
General: Other (Per HPI)
Objective Data
Data Reviewed
Vital Signs / I&O / Oxygen:
Vital Signs
Temp Pulse Resp BP Pulse Ox
98.1 F 59 24 102/53 94
01/25/24 03:47 01/25/24 06:16 01/25/24 06:16 01/25/24 06:16 01/25/24 06:16
Intake and Output
01/24/24 01/25/24 01/26/24
06:59 06:59 06:59
Intake Total 2965.0 / 3060.0 2185 / 2185
Output Total 1140 / 1140 825 / 825
Balance 1825.0 / 1920 1360 / 1360
SaO2 94
Nasal Cannula flow liters per 2
minute
Physical Exam
General: Respiratory Distress (n) and Comfortable
HEENT: Normocephalic, Anicteric and Moist Mucous Membranes
Cardiovascular: Regular Rhythm
Respiratory: Wheeze (n), Crackles, Rhonchi, Non-Labored Respirations, Accessory Resp Muscle Use (n) and Stridor (n)
GI: Soft, Distended and Non Tender
Neurology: Awake, Alert and No Motor Deficits
Skin: Warm, Good Color, Cyanosis (n), Jaundice (n) and Rash (n)
Labs/Micro/Reports
Lab Data
01/25/24 04:35
01/25/24 04:35
Laboratory Results
01/25/24
04:35
APTT 75.7 H
Microbiology
01/21/24 16:17 Blood/Venous Blood Culture - Preliminary
No Growth in 72 hours- Final report to follow
01/21/24 16:09 Urine Urine Culture - Final
NO GROWTH
01/21/24 09:00 Blood/Venous Blood Culture - Preliminary
No Growth in 72 hours- Final report to follow
01/22/24 05:52 Nasal Swab Influenza Types A & B (MARKELL) - Final
Negative for Influenza A & B, NAAT
Negative results must be combined with clinical observations
and patient history.
Nucleic Acid Amplification test (NAAT)performed on the
[employer] platform.
[2024-01-25] MEDS: NSS (PRESERVATIVE FREE) 10 ML IV (08:04)
[2024-01-25] MEDS: PROTONIX IV 40 MG IV (08:05)
--- NOTE | 2024-01-25 10:00 | W.PN.CRS1 ---
Today's Communication / Plan
-
full liquids
okay to transition to po anticoagulation
Assessment/Plan
-
POD 6 robotic sigmoid colostomy, liver biopsy, placement of Mediport; complicated by fever and hypotension, requiring Levophed, blood and urine cultures sent, started on broad-spectrum antibiotics; CTA showing no PE, significant volume loss of the
right lung associated with fluid/mucus impaction involving all 3 segmental bronchi, pulmonary metastatic disease, portal venous thrombus, small to moderate abdominal ascites; transferred to ICU
Tmax afebrile over the past 24 hours, off of Levophed
WBC 3.2, hgb 8.2 (9.1)
ostomy output: 100ml
� Septic shock of uncertain etiology, ddx includes pulmonary vs abdominal vs urosepsis; follow-up blood and urine cultures
� Appreciate pulmonology
� PV thrombus, continue hep drip, trend CBC daily - okay to start on a po anticoagulation, will defer to hospitalist
� Continue IV Zosyn, follow-up cultures
� Advance diet to fulls
- Okay for OOB with PT
� Appreciate ICU/hospitalist
- Trend ostomy output
- OKay to step down from ICU later if maintains pressers off of levophed
Subjective Data
Procedure
Robotic sigmoid colostomy (Villalobos-type). liver biopsy and insertion of Infusaport (metastatic rectal cancer)
Subjective Data
Date of Service: January 25, 2024
Patient states he feels well today. He drank liquids yesterday and did well. His pain is controlled. He has function in his colostomy bag.
Objective Data
-
Vital Signs
Temp Pulse Resp BP Pulse Ox
98.1 F 61 18 109/63 95
01/25/24 08:13 01/25/24 08:08 01/25/24 08:08 01/25/24 08:08 01/25/24 08:08
Intake & Output
01/24/24 01/25/24 01/26/24
06:59 06:59 06:59
Intake Total 2965.0 / 3060.0 2185 / 2200
Output Total 1140 / 1140 825 / 825 200 / 200
Balance 1825.0 / 1920 1360 / 1375 -170 / -170
Intake:
Oral fluids 240 / 240 475 / 475
IV fluids (Total) 2625.0 / 2720.0 1560 / 1575 30 / 30
D5/0.45%NSS with KCL 20 MEQ 20 1040 / 1120 1200 / 1200
meq In 1,000 ml @ 80 mls/hr IV
.[id number] SURENDRA Rx#:[id number]
D5/0.45%NaCl 1,000 ml @ 80 mls/ 800 / 800
hr IV .[id number] SURENDRA Rx#:[id number]
hep 545 / 560 360 / 375 30 / 30
levophed 240.0 / 240.0
IV piggybacks 100 / 100 150 / 150
Output:
Liquid stool amount 350 / 350 100 / 100
Colostomy 350 / 350 100 / 100
Urine, Sapp 290 / 290
Urine, Voided 500 / 500 725 / 725 200 / 200
Other:
Number of approximated MODERATE 1
amounts of urine
How many times incontinent 1
SMALL amount urine
How many times incontinent 1
MODERATE amount urine
Lab Results
01/25/24 04:35
01/25/24 04:35
Physical Exam
-
General: No Acute Distress and AOx3
Abdomen: Soft, Non Distended, Non Tender and Other (colostomy warm and pink with function)
Skin: Warm and Dry
--- NOTE | 2024-01-25 14:10 | WOUNDNOTE ---
WO RN Note: Patient's daughter unable to come in for ostomy teaching. Instructed patient pouch emptying and changing appliance using Margoth wafer # [id number], Robin seal and Margoth pouch # [id number]. Peristomal skin intact with minimal local
erythema. Instructed use of OTC 2% miconazole powder prn rash like skin followed by no sting barrier wipe. Ostomy supplies in room. Confirmed with [place] last week that HomeTouch ostomy secure starter kit was ordered. Next appliance change due
Monday.
--- NOTE | 2024-01-25 14:38 | CM ---
CM following re: discharge planning.
Discussed in Rounds, reviewed pt's chart, met with pt. Per Rounds meeting, pt is POD 6 robotic sigmoid colostomy, liver biopsy, placement of Mediport, continue supportive care.
PT and OT re-evaluations noted - SNF vs home PT recommended. Pt is aware, politely declined SNF level of care and requested [facility]. pt stated he lives alone in [place] and he might go to her daughter's house in [place] for couple of days.
A referral to [facility] noted. [facility] liaison following.
D/C plan: Home with [facility]. Family to transport at discharge.
CM will follow with discharge plan updates as hospitalization progresses
--- NOTE | 2024-01-25 15:23 | PTCARENOTE ---
assumed care for this patient. AAOx3, no c/o pain offered. colostomy to left upper quadrant intact with brown liquid output and flatus noted. BP stable, Map>65. cont therapeutic level Heparin gtt @15ml/hr. daily PTT in progress. seen by surgery,
diet upgraded to full liquids. patient is tolerating the diet, denies nausea, abd pain. downgrade to IMU orders noted. all patient's needs anticipated. cont to monitor
--- NOTE | 2024-01-25 16:40 | WOUNDNOTE ---
Dropped off Colostomy teaching folder in patient's room. Patient aware.
--- NOTE | 2024-01-25 17:11 | W.PN.HOSP.TC ---
Today's Communication/Plan
-
transfer to IMU
cautiously advance diet
Assessment / Plan
Assessment / Plan
Fever, Tachycardia, Hypotension, Hypoxia on January 21, 2024
Shock -- concern for Septic Shock from a possible UTI vs. post-surgical complication
History of recurrent urinary tract infections (treated on outpatient basis by Urgent Care centers in the past)
-IV fluid boluses given on 01/21/24
-Levophed started, had been weaned down to off, needed to be resumed 01/22 at 3PM at 2 mcg/min, was stopped at 5AM on 01/23 and has not required since
-Continue to monitor in ICU
post op ileus slowly resolving
was unable to tolerate clear liquids on 01/22, appears to be tolerating
-Zosyn
-Blood cultures NGTD, UA - NGTD, CXR (no new pneumonia)
-Checked CT PE (due to post-op fever, hypoxia, hypotension, tachycardia, and elevated risk of VTE due to cancer) and CT abdomen/pelvis: Examination is negative for pulmonary embolism.
Volume loss of the right hemithorax with elevation right hemidiaphragm. There is a fluid level within the right mainstem bronchus with opacification of the right upper lobe, middle lobe, and lower lobe bronchi, suggesting fluid and/or mucoid
impaction of the bronchi.
Atelectasis, greater in the right lower lobe.
Minimal bilateral posterior pleural effusions.
Pulmonary metastatic disease.
Diffusely distended fluid-filled esophagus. Suggestion of circumferential wall thickening involving the distal esophagus, raising the possibility of esophagitis.
Coronary artery calcifications and/or stents are present. Aortic valvular calcification, and please correlate with any clinical signs or symptoms that would suggest significant aortic stenosis.
Status post colostomy. Free intraperitoneal air as well as anterior extraperitoneal air is present, compatible with recent surgery. There is also air within the visualized anterior groin region.
Small to moderate amount of ascites within the right upper quadrant adjacent to the liver. Small amount of ascites adjacent to an enlarged spleen in the left upper quadrant. Fluid within the paracolic gutters with a small to moderate amount of free
fluid within the pelvis.
No evidence for bowel obstruction.
Hepatic metastatic disease, increasing from CT examination of December 25, 2023.
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 Thinning of the anterior right portal vein branch, and thrombus involving this branch cannot be excluded.
Intrahepatic biliary ductal dilation, mainly in the left lobe, which is likely due to intrahepatic obstruction from a metastatic lesion.
-Lower extremity dopplers without DVT
Acute Toxic Metabolic Encephalopathy
resolved
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
-Suspected from fever, possible infection, Ativan that was given
-After discussion over the phone with patient's daughter Gaby on 01/21/24, she confirmed patient has not been drinking alcohol -- MSAS protocol and prn Ativan stopped
Leukopenia on 01/20, then peaked at 10.6 on 01/21-->01/22 9.7-->01/23 6.7-->01/24 3.2k
Hypertension
Hypokalemia
resolved
Hyperlipidemia
Metastatic rectal cancer status post robotic sigmoid colostomy, as well as liver biopsy and insertion of [id number]-M-[id number]
Patient's oncologist is Dr. Dorantes, has appt on 01/30
Rheumatoid arthritis (not on any RA-specific medications as per patient's daughter)
Code Status: Full Code
transfer to IMU
Anticipated Discharge: > 48 hours
Subjective/Interval History
-
Date of Service: January 25, 2024
Looks better, tolerated clear liquids
Objective Data
-
Labs:
Laboratory Results
01/25/24
04:35
Sodium 139
Potassium 3.7
Chloride 107
Carbon Dioxide 25
BUN 18
Creatinine 0.7
Glucose 84
Calcium 7.8 L
Total Bilirubin 0.9
AST 65 H
ALT 53 H
Alkaline Phosphatase 369 H
Vital Signs:
Vital Signs
Temp Pulse Resp BP Pulse Ox
98.2 F 63 25 106/63 96
01/25/24 15:58 01/25/24 15:00 01/25/24 15:00 01/25/24 15:00 01/25/24 15:31
I&O
01/24/24 01/25/24 01/26/24
06:59 06:59 06:59
Intake Total 2965.0 / 3060.0 2185 / 2200 465 / 465
Output Total 1140 / 1140 825 / 825 525 / 525
Balance 1825.0 / 1920 1360 / 1375 -60 / -60
Review of Systems
-
History Source: Patient and Coordinated Provider
Constitutional: Denies Fever (last fever was 101.0 on 01/20 @10:00)
EENT: Reports No Symptoms Reported
Respiratory: Reports No Symptoms; Denies Cough
Cardiac: Reports No Symptoms
Abdomen/GI: Reports Abdominal Pain (post op)
Physical Exam
-
General: Well Developed, Well Nourished and No Apparent Distress
HEENT: Normocephalic, Atraumatic and Moist Mucous Membranes
Respiratory: Clear to Auscultation; Negative Wheezes, Rales or Rhonchi
Cardiac: Regular Rhythm and S1/S2
GI: Soft, Normal Bowel Sounds, Tender (post op, but appears less tender than yesterday) and Ostomy; Negative Distended (resolved)
Musculoskeletal: No Clubbing, No Cyanosis and No Edema
Neuro: Awake, Alert and Oriented
--- NOTE | 2024-01-25 20:14 | PTCARENOTE ---
On assessment pt AAOx3, denies pain and SOB, SR on the monitor, 95% RA, colostomy intact, WC seen pt today for education, stool noted, red stoma, hypoactive BS, tolerating full liquid diet per pt, hep gtt infusion per order, call woodard in reach.
[2024-01-26] VITALS (19 sets, daily range): BP systolic 91–112; BP diastolic 36–65; PULSE 68; O2SAT 96; BMI 31.1
[2024-01-26] MEDS: HEPARIN 25000 UNITS/250 ML IV (03:03)
[2024-01-26] MEDS: ZOSYN 50 IV (03:03)
[2024-01-26 04:08] LABS: % Basophils 0.3 % (0-2); % Eosinophils 5.8 % (0-6); % Immature Granulocytes 1.5 % (0-0.5); % Lymphocytes 24.5 % (20.5-51.1); % Monocytes 12.5 % (1.7-9.3); % Neutrophils 55.4 % (42.2-75.2); Absolute Eosinophils 0.2 10^3/uL (0-0.7); Absolute Immature Granulocytes 0.1 10^3/uL (0-0.05); Absolute Lymphocytes 0.8 10^3/uL (1.2-3.4); Absolute Monocytes 0.4 10^3/uL (0.1-0.6); Absolute Neutrophils 1.9 10^3/uL (1.4-6.5); Hemoglobin 8.4 g/dL (13.0-18.0); Mean Corp Hgb Conc. 33.6 g/dL (33.0-37.0); Mean Corpuscular Hgb 29.7 pg (27.0-31.0); Mean Corpuscular Volume 88.3 fL (80.0-94.0); Mean Platelet Volume 11.3 fL (7.4-10.4); Nucleated Red Blood Cells % 0 % (-); Platelet Count 110 10^3/uL (130-400); Red Blood Cell Count 2.83 10^6/uL (4.70-6.10); Red Cell Dist. Width 13.7 % (11.5-14.5); White Blood Cell Count 3.4 10^3/uL (4.8-10.8)
[2024-01-26 04:20] LABS: APTT 82.1 Sec (23.4-35.0)
[2024-01-26 04:58] LABS: Blood Urea Nitrogen 15 mg/dl (9-20); Calcium 8.1 mg/dl (8.4-10.2); Carbon Dioxide 27 mmol/L (22-30); Chloride 106 mmol/L (98-107); Estimated Creatinine Clearance > 125 ml/min; Glucose 93 mg/dl (70-99); Potassium 3.6 mmol/L (3.5-5.1); Sodium 139 mmol/L (135-145); eGFR > 60.00
--- NOTE | 2024-01-26 08:44 | W.PN.CRS1 ---
Today's Communication / Plan
-
as below
Assessment/Plan
-
POD 9 robotic sigmoid colostomy, liver biopsy, placement of Mediport; complicated by fever and hypotension, requiring Levophed, blood and urine cultures sent, started on broad-spectrum antibiotics; CTA showing no PE, significant volume loss of the
right lung associated with fluid/mucus impaction involving all 3 segmental bronchi, pulmonary metastatic disease, portal venous thrombus, small to moderate abdominal ascites; transferred to ICU
-now off pressors, BP slightly low/asymptomatic;
AFVSS (SBPs in the 90s), off NC
WBC 3.4 from 3.2, Hb 8.4 from 8.2, CR 0.7, UOP 1.0 L
� Septic shock of uncertain etiology, ddx includes pulmonary vs abdominal vs urosepsis; blood and urine cultures ngtd
-Continue zosyn; ok to d/c from abdominal standpoint
� Concern for right lung mucous plugging, recommend aggressive IS, appreciate pulmonary
� PV thrombus; continue hep drip, ok to transition to oral AC
� Systolic BPs soft, but asymptomatic; defer to primary
� Okay to advance to low residue
� Continue IS/OOB; appreciate PT
� Appreciate primary
Subjective Data
Procedure
Robotic sigmoid colostomy (Villalobos-type). liver biopsy and insertion of Infusaport (metastatic rectal cancer)
Subjective Data
Date of Service: January 26, 2024
No overnight events.
Pain controlled.
Denies nausea/vomiting. Tolerating diet.
+ Ostomy function +voiding
Objective Data
-
Vital Signs
Temp Pulse Resp BP Pulse Ox
97.8 F 57 21 93/50 97
01/26/24 08:29 01/26/24 06:00 01/26/24 06:00 01/26/24 06:00 01/26/24 06:00
Intake & Output
10/01/26/24 01/27/24
06:59 06:59 06:59
Intake Total 2185 / 2200 710 / 710
Output Total 825 / 825 1025 / 1025
Balance 1360 / 1375 -315 / -315
Intake:
Oral fluids 475 / 475 200 / 200
IV fluids (Total) 1560 / 1575 360 / 360
D5/0.45%NSS with KCL 20 MEQ 20 1200 / 1200
meq In 1,000 ml @ 80 mls/hr IV
.[id number] SURENDRA Rx#:[id number]
hep 360 / 375 360 / 360
IV piggybacks 150 / 150 150 / 150
Output:
Liquid stool amount 100 / 100 25 / 25
Colostomy 100 / 100 25 / 25
Urine, Voided 725 / 725 1000 / 1000
Other:
How many times incontinent 1
SMALL amount urine
Lab Results
01/26/24 03:41
01/26/24 03:41
Physical Exam
-
General: No Acute Distress and AOx3
Abdomen: Soft, Non Distended (Protuberant, nontympanitic), Non Tender and Other (Ostomy pink and productive of brown stool)
Skin: Warm and Dry
Wound: No Signs of Infection, Dressing in Place and No Skin Erythema
[2024-01-26] MEDS: NSS (PRESERVATIVE FREE) 10 ML IV (09:03)
[2024-01-26] MEDS: PROTONIX IV 40 MG IV (09:04)
--- NOTE | 2024-01-26 12:03 | PTCARENOTE ---
Rec'd pt this AM. BP improved low 100s systolic. tolerated low res diet for breakfast. good output from ostomy. resting comfortably
--- NOTE | 2024-01-26 12:39 | CM ---
CM following re: discharge planning.
Discussed in Rounds, reviewed pt's chart, met with pt. Per Rounds meeting, pt is POD #7 robotic sigmoid colostomy, liver biopsy, placement of Mediport, continue supportive care.
Pt continues to deny SNF level of care and requested returning back home with [facility].
[facility] liaison following.
D/C plan: Home with [facility]. Daughter to transport at discharge.
CM will follow with discharge plan updates as hospitalization progresses
--- NOTE | 2024-01-26 13:22 | W.PN.HOSP.TC ---
Today's Communication/Plan
-
stop Heparin and transition to DOAC
Assessment / Plan
Assessment / Plan
Fever, Tachycardia, Hypotension, Hypoxia on January 21, 2024
Shock -- concern for Septic Shock from a possible UTI vs. post-surgical complication
History of recurrent urinary tract infections (treated on outpatient basis by Urgent Care centers in the past)
-IV fluid boluses given on 01/21/24
-Levophed started, had been weaned down to off, needed to be resumed 01/22 at 3PM at 2 mcg/min, was stopped at 5AM on 01/23 and has not required since
-Has been transferred to IMU
post op ileus slowly resolving
was unable to tolerate clear liquids on 01/22, appears to be tolerating
-Zosyn has now been stopped
-Blood cultures NGTD, UA - NGTD, CXR (no new pneumonia)
-Checked CT PE (due to post-op fever, hypoxia, hypotension, tachycardia, and elevated risk of VTE due to cancer) and CT abdomen/pelvis: Examination is negative for pulmonary embolism.
Volume loss of the right hemithorax with elevation right hemidiaphragm. There is a fluid level within the right mainstem bronchus with opacification of the right upper lobe, middle lobe, and lower lobe bronchi, suggesting fluid and/or mucoid
impaction of the bronchi.
Atelectasis, greater in the right lower lobe.
Minimal bilateral posterior pleural effusions.
Pulmonary metastatic disease.
Diffusely distended fluid-filled esophagus. Suggestion of circumferential wall thickening involving the distal esophagus, raising the possibility of esophagitis.
Coronary artery calcifications and/or stents are present. Aortic valvular calcification, and please correlate with any clinical signs or symptoms that would suggest significant aortic stenosis.
Status post colostomy. Free intraperitoneal air as well as anterior extraperitoneal air is present, compatible with recent surgery. There is also air within the visualized anterior groin region.
Small to moderate amount of ascites within the right upper quadrant adjacent to the liver. Small amount of ascites adjacent to an enlarged spleen in the left upper quadrant. Fluid within the paracolic gutters with a small to moderate amount of free
fluid within the pelvis.
No evidence for bowel obstruction.
Hepatic metastatic disease, increasing from CT examination of December 25, 2023.
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 Thinning of the anterior right portal vein branch, and thrombus involving this branch cannot be excluded.
Intrahepatic biliary ductal dilation, mainly in the left lobe, which is likely due to intrahepatic obstruction from a metastatic lesion.
-Lower extremity dopplers without DVT
Acute Toxic Metabolic Encephalopathy
resolved
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
discussed with CRS, okay to transition to DOAC
-Suspected from fever, possible infection, Ativan that was given
-After discussion over the phone with patient's daughter Gaby on 01/21/24, she confirmed patient has not been drinking alcohol -- MSAS protocol and prn Ativan stopped
Leukopenia on 01/20, then peaked at 10.6 on 01/21-->01/22 9.7-->01/23 6.7-->01/24 3.2k
Hypertension
Hypokalemia
resolved
Hyperlipidemia
Metastatic rectal cancer status post robotic sigmoid colostomy, as well as liver biopsy and insertion of [id number]
Patient's oncologist is Dr. Dorantes, has appt on 01/30
Rheumatoid arthritis (not on any RA-specific medications as per patient's daughter)
Code Status: Full Code
transferred to IMU
Anticipated Discharge: 24 - 48 hours
Subjective/Interval History
-
Date of Service: January 26, 2024
Awake, alert, conversant
Objective Data
-
Labs:
Laboratory Results
01/26/24 01/26/24
03:41 03:45
WBC 3.4 L
Hgb 8.4 L
Hct 25.0 L
Plt Count 110 L
APTT 82.1 H
Sodium 139
Potassium 3.6
Chloride 106
Carbon Dioxide 27
BUN 15
Creatinine 0.7
Glucose 93
Calcium 8.1 L
Vital Signs:
Vital Signs
Temp Pulse Resp BP Pulse Ox
98.2 F 74 24 104/59 95
01/26/24 11:59 01/26/24 10:00 01/26/24 10:00 01/26/24 09:00 01/26/24 10:00
I&O
01/25/24 01/26/24 01/27/24
06:59 06:59 06:59
Intake Total 2185 / 2200 710 / 710 240 / 240
Output Total 825 / 825 1025 / 1025 200 / 200
Balance 1360 / 1375 -315 / -315 40 / 40
Review of Systems
-
History Source: Patient and Coordinated Provider
Constitutional: Denies Fever (last fever was 101.0 on 01/20 @10:00)
EENT: Reports No Symptoms Reported
Respiratory: Reports No Symptoms; Denies Cough
Cardiac: Reports No Symptoms
Abdomen/GI: Reports Abdominal Pain (post op, has diminished); Denies Bloated (essentially resolved)
Physical Exam
-
General: Well Developed, Well Nourished and No Apparent Distress
HEENT: Normocephalic, Atraumatic and Moist Mucous Membranes
Respiratory: Clear to Auscultation; Negative Wheezes, Rales or Rhonchi
Cardiac: Regular Rhythm and S1/S2
GI: Soft, Normal Bowel Sounds, Tender (post op, essentially resolved) and Ostomy; Negative Distended (resolved)
Musculoskeletal: No Clubbing, No Cyanosis and No Edema
Neuro: Awake, Alert and Oriented
[2024-01-26] MEDS: ELIQUIS 10 MG PO (21:39)
--- NOTE | 2024-01-26 22:40 | PTCARENOTE ---
On assessment pt AAOx3, denies pain and SOB, SR on the monitor, 95% RA, colostomy intact, stool noted, red stoma, hypoactive BS, tolerating diet per pt, hep gtt infusion stopped at 1999 per MD and started on p.o, call woodard in reach.
[2024-01-27] VITALS (12 sets, daily range): BP systolic 104–121; BP diastolic 58–83; BMI 31.1
[2024-01-27 04:02] LABS: % Basophils 0.3 % (0-2); % Eosinophils 4.1 % (0-6); % Immature Granulocytes 2.7 % (0-0.5); % Lymphocytes 21.1 % (20.5-51.1); % Monocytes 12.2 % (1.7-9.3); % Neutrophils 59.6 % (42.2-75.2); Absolute Eosinophils 0.2 10^3/uL (0-0.7); Absolute Immature Granulocytes 0.1 10^3/uL (0-0.05); Absolute Lymphocytes 0.8 10^3/uL (1.2-3.4); Absolute Monocytes 0.5 10^3/uL (0.1-0.6); Absolute Neutrophils 2.2 10^3/uL (1.4-6.5); Hematocrit 26.5 % (39.0-52.0); Hemoglobin 8.7 g/dL (13.0-18.0); Mean Corp Hgb Conc. 32.8 g/dL (33.0-37.0); Mean Corpuscular Hgb 28.8 pg (27.0-31.0); Mean Corpuscular Volume 87.7 fL (80.0-94.0); Mean Platelet Volume 10.7 fL (7.4-10.4); Nucleated Red Blood Cells % 0 % (-); Platelet Count 126 10^3/uL (130-400); Red Blood Cell Count 3.02 10^6/uL (4.70-6.10); Red Cell Dist. Width 13.6 % (11.5-14.5); White Blood Cell Count 3.7 10^3/uL (4.8-10.8)
[2024-01-27 04:23] LABS: Blood Urea Nitrogen 13 mg/dl (9-20); Calcium 8.3 mg/dl (8.4-10.2); Carbon Dioxide 29 mmol/L (22-30); Chloride 105 mmol/L (98-107); Estimated Creatinine Clearance > 125 ml/min; Glucose 93 mg/dl (70-99); Potassium 3.6 mmol/L (3.5-5.1); Sodium 138 mmol/L (135-145); eGFR > 60.00
--- NOTE | 2024-01-27 08:22 | W.PN.HOSP.TC ---
Today's Communication/Plan
-
Will defer to Surgery timing of dc, will need Eliquis 10 mg bid until 02/01, then 5 mg bid to follow. Has appt with his oncologist, Dr. Dorantes on 01/30
Assessment / Plan
Assessment / Plan
Fever, Tachycardia, Hypotension, Hypoxia on January 21, 2024
Shock -- concern for Septic Shock from a possible UTI vs. post-surgical complication
History of recurrent urinary tract infections (treated on outpatient basis by Urgent Care centers in the past)
-IV fluid boluses given on 01/21/24
-Levophed started, had been weaned down to off, needed to be resumed 01/22 at 3PM at 2 mcg/min, was stopped at 5AM on 01/23 and has not required since
-Has been transferred to IMU
post op ileus slowly resolving
was unable to tolerate clear liquids on 01/22, appears to be tolerating
-Zosyn has now been stopped
-Blood cultures NGTD, UA - NGTD, CXR (no new pneumonia)
-Checked CT PE (due to post-op fever, hypoxia, hypotension, tachycardia, and elevated risk of VTE due to cancer) and CT abdomen/pelvis: Examination is negative for pulmonary embolism.
Volume loss of the right hemithorax with elevation right hemidiaphragm. There is a fluid level within the right mainstem bronchus with opacification of the right upper lobe, middle lobe, and lower lobe bronchi, suggesting fluid and/or mucoid
impaction of the bronchi.
Atelectasis, greater in the right lower lobe.
Minimal bilateral posterior pleural effusions.
Pulmonary metastatic disease.
Diffusely distended fluid-filled esophagus. Suggestion of circumferential wall thickening involving the distal esophagus, raising the possibility of esophagitis.
Coronary artery calcifications and/or stents are present. Aortic valvular calcification, and please correlate with any clinical signs or symptoms that would suggest significant aortic stenosis.
Status post colostomy. Free intraperitoneal air as well as anterior extraperitoneal air is present, compatible with recent surgery. There is also air within the visualized anterior groin region.
Small to moderate amount of ascites within the right upper quadrant adjacent to the liver. Small amount of ascites adjacent to an enlarged spleen in the left upper quadrant. Fluid within the paracolic gutters with a small to moderate amount of free
fluid within the pelvis.
No evidence for bowel obstruction.
Hepatic metastatic disease, increasing from CT examination of December 25, 2023.
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 Thinning of the anterior right portal vein branch, and thrombus involving this branch cannot be excluded.
Intrahepatic biliary ductal dilation, mainly in the left lobe, which is likely due to intrahepatic obstruction from a metastatic lesion.
-Lower extremity dopplers without DVT
Acute Toxic Metabolic Encephalopathy
resolved
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
-After discussion over the phone with patient's daughter Gaby on 01/21/24, she confirmed patient has not been drinking alcohol -- MSAS protocol and prn Ativan stopped
Leukopenia on 01/20 resolved, then peaked at 10.6 on 01/21-->01/22 9.7-->01/23 6.7-->01/24 3.2k
Hypertension
Hypokalemia
resolved
Hyperlipidemia
Metastatic rectal cancer status post robotic sigmoid colostomy, as well as liver biopsy and insertion of [id number]
Patient's oncologist is Dr. Dorantes, has appt on 01/30
Rheumatoid arthritis (not on any RA-specific medications as per patient's daughter)
Code Status: Full Code
Anticipated Discharge: 24 - 48 hours
Subjective/Interval History
-
Date of Service: January 27, 2024
Looks well, tolerating diet
Objective Data
-
Labs:
Laboratory Results
01/27/24
03:41
WBC 3.7 L
Hgb 8.7 L
Hct 26.5 L
Plt Count 126 L
Sodium 138
Potassium 3.6
Chloride 105
Carbon Dioxide 29
BUN 13
Creatinine 0.7
Glucose 93
Calcium 8.3 L
Vital Signs:
Vital Signs
Temp Pulse Resp BP Pulse Ox
97.7 F 65 27 106/61 95
01/27/24 07:00 01/27/24 06:00 01/27/24 06:00 01/27/24 06:00 01/27/24 06:00
I&O
01/26/24 01/27/24 01/28/24
06:59 06:59 06:59
Intake Total 710 / 710 600 / 600
Output Total 1025 / 1025 900 / 900
Balance -315 / -315 -300 / -300
Review of Systems
-
History Source: Patient and Coordinated Provider
Constitutional: Denies Fever (last fever was 101.0 on 01/20 @10:00)
EENT: Reports No Symptoms Reported
Respiratory: Reports No Symptoms; Denies Cough
Cardiac: Reports No Symptoms
Abdomen/GI: Reports Abdominal Pain (post op, markedly diminished, mild residual); Denies Bloated (essentially resolved)
Physical Exam
-
General: Well Developed, Well Nourished and No Apparent Distress
HEENT: Normocephalic, Atraumatic and Moist Mucous Membranes
Respiratory: Clear to Auscultation; Negative Wheezes, Rales or Rhonchi
Cardiac: Regular Rhythm and S1/S2
GI: Soft, Normal Bowel Sounds, Tender (post op, essentially resolved) and Ostomy; Negative Distended (resolved)
Musculoskeletal: No Clubbing, No Cyanosis and No Edema
Neuro: Awake, Alert and Oriented
[2024-01-27] MEDS: PROTONIX 40 MG PO (08:23)
[2024-01-27] MEDS: ELIQUIS 10 MG PO ×2 (08:23→19:38)
--- NOTE | 2024-01-27 12:00 | PTCARENOTE ---
Assumed care of pt from production supervisor off shift RN. AAOx3. NSR on shelter monitor. SpO2 96% on room air. VSS. Lap sites approximated & SENIOR MATERIALS ANALYST, surgical adhesive present. Colostomy with brown stool in collection bag, stoma red. Pt tolerating diet. Ecchymosis noted
to R side of pt abdomen and hip. L side of abdomen tender to palpation. Pt remains IMU level of care at this time. Call woodard in reach, no complaints at this time.
--- NOTE | 2024-01-27 13:40 | W.PN.GS2 ---
Addendum entered and electronically signed by Mario Weinberg MD 01/27/24 15:53:
I saw and examined the patient.
The Salvage Supervisor's note was reviewed and I agree with the note.
Comment: Improving, stoma producing gas and stool, rodney diet, pain controlled. Exam approp. No further hypotensive episodes since early yesterday am. Would cont to monitor for now, anticipate DC 24-48 hrs.
Original Note:
Today's Communication / Plan
-
LRD
PO AC
Dispo planning
Assessment / Plan
-
68 yo male with a h/o metastatic rectal CA now POD #10 Robotic sigmoid colostomy (owusu-type) with liver biopsy and infusaport insertion recovery complicated by fever and hypotension one week ago, requiring pressors. blood and urine cultures
negative, started on broad-spectrum antibiotics which have since been stopped. CTA done in work up showed no PE, but with significant volume loss of the right lung associated with fluid/mucus impaction involving all 3 segmental bronchi, pulmonary
metastatic disease, portal venous thrombus, small to moderate abdominal ascites. 2D echo with normal EF, normal RV. Venous duplex of BLLE without DVT's
Afebrile
VSS.
Has been off pressors since 01/23. BP's low yesterday but stable today
Transferred to IMU but in ICU d/t bed availability
Ileus resolved
--Continue LRD
--Local stoma care
--PO analgesics as needed
--CM following for VNA arrangements
--Hospitalist following, appreciate recs
--Home BP meds still on hold given hypotension yesterday, will defer to hospitalist on when/if to resume
--On oral AC given portal vein thrombus. Will follow as OP with Dr. Dorantes of heme/onc
--scds while in bed, lovenox on hold given anemia
Anticipate d/c in the next 24-48h pending continued diet tolerance and stable BP
Subjective Data
-
Date of Service: January 27, 2024
Patient seen and examined at bedside. Denies pain. Denies n/v. Notes he feels comfortable caring for his stoma with his daughter and vna.
Objective Data
-
Intake and Output
01/26/24 01/27/24 01/28/24
06:59 06:59 06:59
Intake Total 710 / 710 600 / 600 360 / 360
Output Total 1025 / 1025 900 / 900 150 / 150
Balance -315 / -315 -300 / -300 210 / 210
Intake:
Oral fluids 200 / 200 300 / 300 360 / 360
IV fluids (Total) 360 / 360 300 / 300
hep 360 / 360 300 / 300
IV piggybacks 150 / 150
Output:
Liquid stool amount 25 / 25 250 / 250
Colostomy 25 / 25 250 / 250
Urine, Voided 1000 / 1000 650 / 650 150 / 150
Vital Signs
Temp Pulse Resp BP Pulse Ox
98.1 F 74 26 114/66 95
01/27/24 11:00 01/27/24 10:30 01/27/24 10:30 01/27/24 10:00 01/27/24 10:30
Lab Results
01/27/24 03:41
01/27/24 03:41
Calcium 8.3 mg/dl (8.4-10.2) L 01/27/24 03:41
Phosphorus 4.2 mg/dl (2.5-4.5) 01/18/24 17:15
Magnesium 2.6 mg/dl (1.6-2.3) H 01/18/24 17:15
Total Bilirubin 0.9 mg/dl (0.2-1.3) 01/25/24 04:35
Direct Bilirubin 0.4 mg/dl (0.0-0.4) 01/25/24 04:35
AST 65 U/L (17-59) H 01/25/24 04:35
ALT 53 U/L (0-50) H 01/25/24 04:35
Alkaline Phosphatase 369 U/L (38-126) H 01/25/24 04:35
Total Protein 4.9 g/dl (6.3-8.2) L 01/25/24 04:35
Albumin 2.1 g/dl (3.5-5.0) L 01/25/24 04:35
Physical Exam
-
NAD
ABD soft, obese, NT, ND
Stoma pink, viable with +flatus/stool in appliance
Incisions healing well with intact glue
--- NOTE | 2024-01-27 20:00 | PTCARENOTE ---
Patient received in bed, AAOX3, offers no complaints. NSR on monitor, trace lower extremity edema noted. Lungs diminished, pulse ox 95% on room air. Abdomen obese, tender on left side. Colostomy draining soft brown stool. Voiding jordana urine.
4 lap sites approximated. #20 g in right forearm and left SC port flushed and patent. Plan of care discussed, call woodard within reach.
[2024-01-28] VITALS (14 sets, daily range): BP systolic 88–125; BP diastolic 49–88
--- NOTE | 2024-01-28 07:43 | PTCARENOTE ---
0700 patient in bed. VS 118/63 SR 73 RA 94% Denies pain. Denies nausea. Left colostomy in place Bowel output . Voiding in a urinal jordana clear. pedal pulses palatable Trace edema
[2024-01-28] MEDS: PROTONIX 40 MG PO (07:49)
[2024-01-28] MEDS: ELIQUIS 10 MG PO ×2 (07:49→20:11)
--- NOTE | 2024-01-28 12:28 | W.PN.GS2 ---
Addendum entered and electronically signed by Mario Weinberg MD 01/28/24 12:44:
I saw and examined the patient.
The Supervisor Extrusion's note was reviewed and I agree with the note.
Comment: Clinically well but remains borderline BP by cuff pressure (SBP 92 during my encounter and one reading <90 overnight). He is asymptomatic from the low-normal BP. [place] diet, stoma with stool and flatus, denies pain. Plan to cont current
mgmt, monitor BP another 24 hrs.
Original Note:
Today's Communication / Plan
-
Follow BP's
Continue LRD
Assessment / Plan
-
68 yo male with a h/o metastatic rectal CA now POD #11 Robotic sigmoid colostomy (owusu-type) with liver biopsy and infusaport insertion recovery complicated by fever and hypotension one week ago, requiring pressors. blood and urine cultures
negative, started on broad-spectrum antibiotics which have since been stopped. CTA done in work up showed no PE, but with significant volume loss of the right lung associated with fluid/mucus impaction involving all 3 segmental bronchi, pulmonary
metastatic disease, portal venous thrombus, small to moderate abdominal ascites. 2D echo with normal EF, normal RV. Venous duplex of BLLE without DVT's
Afebrile
VSS.
Has been off pressors since 01/23. BP's continue to be low
Transferred to IMU but in ICU d/t bed availability
Ileus resolved
--Continue LRD
--Local stoma care
--PO analgesics as needed
--CM following for VNA arrangements
--Hospitalist following, appreciate recs
--Home BP meds still on hold given hypotension yesterday, will defer to hospitalist on when/if to resume
--On oral AC given portal vein thrombus. Will follow as OP with Dr. Dorantes of heme/onc
--scds while in bed, lovenox on hold given anemia
Anticipate d/c in the next 24-48h pending continued diet tolerance and stable BP
Subjective Data
-
Date of Service: January 28, 2024
Patient seen and examined at bedside with Dr. Weinberg. Denies n/v. Tolerating diet. Denies dizziness.
Objective Data
-
Intake and Output
01/27/24 01/28/24 01/29/24
06:59 06:59 06:59
Intake Total 600 / 600 360 / 360
Output Total 900 / 900 700 / 700
Balance -300 / -300 -340 / -340
Intake:
Oral fluids 300 / 300 360 / 360
IV fluids (Total) 300 / 300
hep 300 / 300
Output:
Liquid stool amount 250 / 250
Colostomy 250 / 250
Urine, Voided 650 / 650 700 / 700
Vital Signs
Temp Pulse Resp BP Pulse Ox
98.5 F 64 26 101/49 94
01/28/24 11:00 01/28/24 07:00 01/28/24 07:00 01/28/24 06:00 01/28/24 07:00
Lab Results
01/27/24 03:41
01/27/24 03:41
Calcium 8.3 mg/dl (8.4-10.2) L 01/27/24 03:41
Phosphorus 4.2 mg/dl (2.5-4.5) 01/18/24 17:15
Magnesium 2.6 mg/dl (1.6-2.3) H 01/18/24 17:15
Total Bilirubin 0.9 mg/dl (0.2-1.3) 01/25/24 04:35
Direct Bilirubin 0.4 mg/dl (0.0-0.4) 01/25/24 04:35
AST 65 U/L (17-59) H 01/25/24 04:35
ALT 53 U/L (0-50) H 01/25/24 04:35
Alkaline Phosphatase 369 U/L (38-126) H 01/25/24 04:35
Total Protein 4.9 g/dl (6.3-8.2) L 01/25/24 04:35
Albumin 2.1 g/dl (3.5-5.0) L 01/25/24 04:35
Physical Exam
-
NAD
ABD soft, obese, NT, ND
Stoma pink, viable with +flatus/stool in appliance
Incisions healing well with intact glue
--- NOTE | 2024-01-28 14:15 | PTCARENOTE ---
Out of bed. Ambulatory in a room independently. Denies nausea denies abdominal pain . Colostomy draining semi form BM output
--- NOTE | 2024-01-28 16:19 | W.PN.HOSP.TC ---
Today's Communication/Plan
-
continue to hold HTN Rx
Assessment / Plan
Assessment / Plan
Fever, Tachycardia, Hypotension, Hypoxia on January 21, 2024
Shock -- concern for Septic Shock from a possible UTI vs. post-surgical complication
History of recurrent urinary tract infections (treated on outpatient basis by Urgent Care centers in the past)
-IV fluid boluses given on 01/21/24
-Levophed started, had been weaned down to off, needed to be resumed 01/22 at 3PM at 2 mcg/min, was stopped at 5AM on 01/23 and has not required since
-Has been transferred to IMU
post op ileus slowly resolving
was unable to tolerate clear liquids on 01/22, appears to be tolerating diet currently and remains on low residue
-Zosyn has now been stopped
-Blood cultures NGTD, UA - NGTD, CXR (no new pneumonia)
-Checked CT PE (due to post-op fever, hypoxia, hypotension, tachycardia, and elevated risk of VTE due to cancer) and CT abdomen/pelvis: Examination is negative for pulmonary embolism.
Volume loss of the right hemithorax with elevation right hemidiaphragm. There is a fluid level within the right mainstem bronchus with opacification of the right upper lobe, middle lobe, and lower lobe bronchi, suggesting fluid and/or mucoid
impaction of the bronchi.
Atelectasis, greater in the right lower lobe.
Minimal bilateral posterior pleural effusions.
Pulmonary metastatic disease.
Diffusely distended fluid-filled esophagus. Suggestion of circumferential wall thickening involving the distal esophagus, raising the possibility of esophagitis.
Coronary artery calcifications and/or stents are present. Aortic valvular calcification, and please correlate with any clinical signs or symptoms that would suggest significant aortic stenosis.
Status post colostomy. Free intraperitoneal air as well as anterior extraperitoneal air is present, compatible with recent surgery. There is also air within the visualized anterior groin region.
Small to moderate amount of ascites within the right upper quadrant adjacent to the liver. Small amount of ascites adjacent to an enlarged spleen in the left upper quadrant. Fluid within the paracolic gutters with a small to moderate amount of free
fluid within the pelvis.
No evidence for bowel obstruction.
Hepatic metastatic disease, increasing from CT examination of December 25, 2023.
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 Thinning of the anterior right portal vein branch, and thrombus involving this branch cannot be excluded.
Intrahepatic biliary ductal dilation, mainly in the left lobe, which is likely due to intrahepatic obstruction from a metastatic lesion.
-Lower extremity dopplers without DVT
Acute Toxic Metabolic Encephalopathy
resolved
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
-After discussion over the phone with patient's daughter Gaby on 01/21/24, she confirmed patient has not been drinking alcohol -- MSAS protocol and prn Ativan stopped
Leukopenia on 01/20 resolved, then peaked at 10.6 on 01/21-->01/22 9.7-->01/23 6.7-->01/24 3.2k
Hypertension
Pt remains borderline hypotensive. BP meds are on hold. Will continue to follow BP for now off medication
Hypokalemia
resolved
Hyperlipidemia
Metastatic rectal cancer status post robotic sigmoid colostomy, as well as liver biopsy and insertion of [id number]
Patient's oncologist is Dr. Dorantes, has appt on 01/30
Rheumatoid arthritis (not on any RA-specific medications as per patient's daughter)
Code Status: Full Code
Anticipated Discharge: 24 - 48 hours
Subjective/Interval History
-
Date of Service: January 28, 2024
Awake, alert, conversant
Objective Data
-
Vital Signs:
Vital Signs
Temp Pulse Resp BP Pulse Ox
98.5 F 64 26 101/49 94
01/28/24 15:00 01/28/24 07:00 01/28/24 07:00 01/28/24 06:00 01/28/24 07:00
I&O
01/27/24 01/28/24 01/29/24
06:59 06:59 06:59
Intake Total 600 / 600 360 / 360
Output Total 900 / 900 700 / 700 300 / 300
Balance -300 / -300 -340 / -340 -300 / -300
Review of Systems
-
History Source: Patient and Coordinated Provider
Constitutional: Denies Fever (last fever was 101.0 on 01/20 @10:00)
EENT: Reports No Symptoms Reported
Respiratory: Reports No Symptoms; Denies Cough
Cardiac: Reports No Symptoms
Abdomen/GI: Reports Abdominal Pain (post op, markedly diminished, mild residual); Denies Bloated (essentially resolved)
Physical Exam
-
General: Well Developed, Well Nourished and No Apparent Distress
HEENT: Normocephalic, Atraumatic and Moist Mucous Membranes
Respiratory: Clear to Auscultation; Negative Wheezes, Rales or Rhonchi
Cardiac: Regular Rhythm and S1/S2
GI: Soft, Normal Bowel Sounds, Tender (post op, essentially resolved) and Ostomy; Negative Distended (resolved)
Musculoskeletal: No Clubbing, No Cyanosis and No Edema
Neuro: Awake, Alert and Oriented
--- NOTE | 2024-01-28 18:32 | PTCARENOTE ---
patient transfer to bed . able to ambulate in a room independently. Denies pain . VSS
--- NOTE | 2024-01-28 20:55 | PTCARENOTE ---
On assessment pt AAOx3, denies pain and SOB, SR on the monitor, 95% RA, colostomy intact, stool noted, red stoma, hypoactive BS, tolerating diet per pt, call woodard in reach.
[2024-01-29] VITALS (7 sets, daily range): BP systolic 108–130; BP diastolic 63–83; BMI 31.1
[2024-01-29 04:36] LABS: % Basophils 0.3 % (0-2); % Eosinophils 3.1 % (0-6); % Immature Granulocytes 2.1 % (0-0.5); % Lymphocytes 19.7 % (20.5-51.1); % Neutrophils 61.8 % (42.2-75.2); Absolute Eosinophils 0.1 10^3/uL (0-0.7); Absolute Immature Granulocytes 0.1 10^3/uL (0-0.05); Absolute Lymphocytes 0.8 10^3/uL (1.2-3.4); Absolute Monocytes 0.5 10^3/uL (0.1-0.6); Absolute Neutrophils 2.4 10^3/uL (1.4-6.5); Hematocrit 26.4 % (39.0-52.0); Hemoglobin 8.9 g/dL (13.0-18.0); Mean Corp Hgb Conc. 33.7 g/dL (33.0-37.0); Mean Corpuscular Hgb 30.5 pg (27.0-31.0); Mean Corpuscular Volume 90.4 fL (80.0-94.0); Mean Platelet Volume 10.9 fL (7.4-10.4); Nucleated Red Blood Cells % 0 % (-); Platelet Count 152 10^3/uL (130-400); Red Blood Cell Count 2.92 10^6/uL (4.70-6.10); Red Cell Dist. Width 13.3 % (11.5-14.5); White Blood Cell Count 3.9 10^3/uL (4.8-10.8)
[2024-01-29 05:13] LABS: ALT (SGPT) 47 U/L (0-50); AST (SGOT) 50 U/L (17-59); Albumin 2.2 g/dl (3.5-5.0); Alkaline Phosphatase 509 U/L (38-126); Blood Urea Nitrogen 13 mg/dl (9-20); Carbon Dioxide 30 mmol/L (22-30); Chloride 103 mmol/L (98-107); Estimated Creatinine Clearance > 125 ml/min; Glucose 94 mg/dl (70-99); Potassium 3.7 mmol/L (3.5-5.1); Sodium 139 mmol/L (135-145); Total Bilirubin 0.8 mg/dl (0.2-1.3); Total Protein 5.3 g/dl (6.3-8.2); eGFR > 60.00
--- NOTE | 2024-01-29 08:12 | W.PN.HOSP.TC ---
Today's Communication/Plan
-
Okay for discharge from hospitalist standpoint today
Assessment / Plan
Assessment / Plan
Physical Exam
General: Well Developed, Well Nourished and No Apparent Distress
HEENT: Normocephalic, Atraumatic and Moist Mucous Membranes
Respiratory: Clear to Auscultation
Cardiac: Regular Rhythm and S1/S2
GI: Soft, Normal Bowel Sounds, Tender (post op, essentially resolved) and Ostomy; Negative Distended (distension resolved)
Musculoskeletal: No Cyanosis and No Edema
Neuro: Awake, Alert and Oriented
Assessment/Plan
Fever, Tachycardia, Hypotension, Hypoxia on January 21, 2024
Shock -- concern for Septic Shock from a possible UTI vs. post-surgical complication
History of recurrent urinary tract infections (treated on outpatient basis by Urgent Care centers in the past)
-IV fluid boluses given on 01/21/24
-Levophed started, had been weaned down to off, needed to be resumed 01/22 at 3PM at 2 mcg/min, was stopped at 5AM on 01/23 and has not required since
-Was previously transferred to IMU level of care
post op ileus slowly resolving
was unable to tolerate clear liquids on 01/22, appears to be tolerating diet currently and remains on low residue
-Zosyn was previously stopped
-Blood cultures with no growth to date (NGTD), urine culture with NGTD, CXR (no new pneumonia)
-CT PE was performed earlier this hospitalization (due to post-op fever, hypoxia, hypotension, tachycardia, and elevated risk of VTE due to cancer) and CT abdomen/pelvis, and as per radiologist's report: Examination is negative for pulmonary
embolism.
Volume loss of the right hemithorax with elevation right hemidiaphragm. There is a fluid level within the right mainstem bronchus with opacification of the right upper lobe, middle lobe, and lower lobe bronchi, suggesting fluid and/or mucoid
impaction of the bronchi.
Atelectasis, greater in the right lower lobe.
Minimal bilateral posterior pleural effusions.
Pulmonary metastatic disease.
Diffusely distended fluid-filled esophagus. Suggestion of circumferential wall thickening involving the distal esophagus, raising the possibility of esophagitis.
Coronary artery calcifications and/or stents are present. Aortic valvular calcification, and please correlate with any clinical signs or symptoms that would suggest significant aortic stenosis.
Status post colostomy. Free intraperitoneal air as well as anterior extraperitoneal air is present, compatible with recent surgery. There is also air within the visualized anterior groin region.
Small to moderate amount of ascites within the right upper quadrant adjacent to the liver. Small amount of ascites adjacent to an enlarged spleen in the left upper quadrant. Fluid within the paracolic gutters with a small to moderate amount of free
fluid within the pelvis.
No evidence for bowel obstruction.
Hepatic metastatic disease, increasing from CT examination of December 25, 2023.
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 Thinning of the anterior right portal vein branch, and thrombus involving this branch cannot be excluded.
Intrahepatic biliary ductal dilation, mainly in the left lobe, which is likely due to intrahepatic obstruction from a metastatic lesion.
-Lower extremity dopplers without DVT
Acute Toxic Metabolic Encephalopathy
resolved
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
-After discussion over the phone by Dr. Lane with patient's daughter Gaby on 01/21/24, she confirmed patient has not been drinking alcohol -- MSAS protocol and prn Ativan previously stopped
Leukopenia on 01/20 resolved, then peaked at 10.6 on 01/21-->01/22 9.7-->01/23 6.7-->01/24 3.2k
Hypertension
Pt with good blood pressures now. BP meds are on hold. Follow-up with outpatient PCP this week and check blood pressures at least daily at home.
Hypokalemia
resolved
Hyperlipidemia
Metastatic rectal cancer status post robotic sigmoid colostomy, as well as liver biopsy and insertion of [id number]
Patient's oncologist is Dr. Dorantes, has appt on 01/30
Rheumatoid arthritis (not on any RA-specific medications as per patient's daughter)
Code Status: Full Code
Thank you for consulting us. From our standpoint, patient can be discharged today with close outpatient follow-up. We will sign off.
Anticipated Discharge: Today
Subjective/Interval History
-
Date of Service: January 29, 2024
Patient was seen and examined. He denied any symptoms. He mentioned that he would really like to go home today.
Objective Data
-
Labs:
Laboratory Results
01/29/24
04:21
WBC 3.9 L
Hgb 8.9 L
Hct 26.4 L
Plt Count 152 D
Sodium 139
Potassium 3.7
Chloride 103
Carbon Dioxide 30
BUN 13
Creatinine 0.6 L
Glucose 94
Calcium 8.0 L
Total Bilirubin 0.8
AST 50
ALT 47
Alkaline Phosphatase 509 H
Vital Signs:
Vital Signs
Temp Pulse Resp BP Pulse Ox
98 F 63 29 130/75 95
01/29/24 04:00 01/29/24 07:00 01/28/24 12:00 01/29/24 06:00 01/29/24 07:00
I&O
01/28/24 01/29/24 01/30/24
06:59 06:59 06:59
Intake Total 360 / 360 440 / 440
Output Total 700 / 700 1150 / 1150
Balance -340 / -340 -710 / -710
--- NOTE | 2024-01-29 08:20 | PTCARENOTE ---
On assessment pt AAOx3, denies pain and SOB, SR on the monitor, 95% RA, colostomy intact, stool noted, red stoma, hypoactive BS, tolerating diet per pt, Refusing OOB to chair at this time. call woodard in reach.
[2024-01-29] MEDS: ELIQUIS 10 MG PO (08:23)
[2024-01-29] MEDS: PROTONIX 40 MG PO (08:23)
--- NOTE | 2024-01-29 13:13 | W.PN.CRS1 ---
Today's Communication / Plan
-
Discharge with home health
Assessment/Plan
-
68 yo male with a h/o metastatic rectal CA now POD #12 Robotic sigmoid colostomy (villalobos-type) with liver biopsy and infusaport insertion recovery complicated by fever and hypotension one week ago, requiring pressors. blood and urine cultures
negative, started on broad-spectrum antibiotics which have since been stopped. CTA done in work up showed no PE, but with significant volume loss of the right lung associated with fluid/mucus impaction involving all 3 segmental bronchi, pulmonary
metastatic disease, portal venous thrombus, small to moderate abdominal ascites. 2D echo with normal EF, normal RV. Venous duplex of BLLE without DVT's
Afebrile
VSS.
Has been off pressors since 01/23. BP's improved over past 24 hours, now normotensive.
Ileus resolved
--Continue LRD
--Local stoma care, boat ride operator for one final teaching today
--PO analgesics as needed
--CM following for VNA arrangements
--Hospitalist following, appreciate recs
--Home BP meds still on hold given hypotension yesterday, will defer to hospitalist on when/if to resume
--On oral AC given portal vein thrombus. Will follow as OP with Dr. Dorantes of heme/onc
--scds while in bed,on Eliquis
--Discharge today with visiting nurse. I spoke to the hospitalist who recommends a blood pressure check at home tomorrow as well as contacting his primary care physician tomorrow. Recheck all routine labs in a few days with his primary care
office. Follow-up with Dr. Navas in 2 weeks.
Subjective Data
Procedure
Robotic sigmoid colostomy (Villalobos-type). liver biopsy and insertion of Infusaport (metastatic rectal cancer)
Subjective Data
Date of Service: January 29, 2024
Patient states he feels well today. He is tolerating a diet. His pain is controlled. He has been out of bed. His colostomy is functioning. He has no complaints.
Objective Data
-
Vital Signs
Temp Pulse Resp BP Pulse Ox
97.6 F 68 29 121/70 95
01/29/24 11:44 01/29/24 12:00 01/28/24 12:00 01/29/24 12:00 01/29/24 12:00
Intake & Output
01/28/24 01/29/24 01/30/24
06:59 06:59 06:59
Intake Total 360 / 360 440 / 440
Output Total 700 / 700 1150 / 1150 275 / 275
Balance -340 / -340 -710 / -710 -275 / -275
Intake:
Oral fluids 360 / 360 440 / 440
Output:
Liquid stool amount 300 / 300
Colostomy 300 / 300
Urine, Voided 700 / 700 850 / 850 275 / 275
Lab Results
01/29/24 04:21
01/29/24 04:21
Physical Exam
-
General: No Acute Distress and AOx3
Abdomen: Soft, Non Distended, Non Tender and Other (Colostomy warm and pink with function)
Skin: Warm and Dry
--- NOTE | 2024-01-29 13:50 | W.DS.TRANS ---
DC Summary - Rn Night
-
Discharge Instructions:
Sleep Apnea Risk Intermediate
Discharge Diagnosis/Procedures Robotic sigmoid colostomy (Villalobos-type). liver
biopsy and insertion of Infusaport
Diet Low Residue
Activity No strenuous activity
Additional Activity No lifting over 10lbs (gallon of milk)
Driving Restrictions No driving for 1 week
Bathing Restrictions OK to Shower
Wound Care Wound care as below.
Instructions: Low Fiber Diet
Stand-Alone Forms:
Changes to Home Medications: Yes
Discharge Medications:
DC Medications w/original date entered in [facility]
atorvastatin 40 mg tablet 40 mg PO DAILY High Cholesterol 01/15/24
multivitamin 1 tab PO DAILY Supplement 01/15/24
apixaban 5 mg tablet (Eliquis) 5 mg PO BID 60 days #120 tabs 01/29/24
apixaban 5 mg tablet (Eliquis) 10 mg (2 x 5 mg) PO BID 5 days #20 tabs 01/29/24
Home Medication Changes
apixaban 5 mg tablet (Eliquis) 5 mg PO BID 60 days #120 tabs 01/29/24
apixaban 5 mg tablet (Eliquis) 10 mg (2 x 5 mg) PO BID 5 days #20 tabs 01/29/24
Pending Results: No
--- NOTE | 2024-01-29 13:56 | WOUNDNOTE ---
[employer] RN note: Patient for discharge today. Patient practised emptying his colostomy appliance. Stoma pink and almost flush, os at skin level at 6 o'clock. Peristomal skin intact. Reinstructed patient appliance change using Margoth wafer # [id number],
Robin seal and Margoth wafer # [id number]. Soft convex wafer # [id number] sample given and instructed can try if flat wafer becomes a leakage problem. Colostomy teaching folder and ostomy supplies in room. Patient turned in bed, sacral and heel skin
intact. Patient hungry for lunch. Lunch tray given. Patient aware to take his air chair cushion home. Instructed pressure injury prevention measures.
--- NOTE | 2024-01-29 14:07 | CM ---
CM following re: discharge planning.
Reviewed pt's chart, met with pt.
Discharge order noted. Pt is aware and he stated his daughter will transport home. IMM reviewed, placed on chart, pt has a copy.
Pt is aware he will have [facility] services.
Please fax discharge instructions to [facility] at [phone].
D/C plan: home with [facility] and family support. Daughter to transport.
--- NOTE | 2024-01-29 15:37 | PTCARENOTE ---
Pt discharged with family after extensive discussion about Eliquis dose 10mg BID through monday, then monday 5mg BID. grades 9 thru 12 visiting teacher to bedside for final ostomy teaching. Pt verbalized understanding. Written directions provided.
== END 2024-01-29 16:29 | disposition home health service (06) | DRG 329 ==
LOC: ICU 11:12
PROVIDERS: Internal Medicine; Internal Medicine Critical Care Medicine; Nurse Practitioner Family; Physician Assistant; Registered Nurse; Surgery; ADMITTING PHYSICIAN Surgery; CONSULT PHYSICIAN Hospitalist; CONSULT PHYSICIAN Internal Medicine Critical Care Medicine; FAMILY PHYSICIAN Family Medicine
PROC: 0JH63WZ Insertion of Totally Implantable Vascular Access Device into Chest Subcutaneous Tissue and Fascia, Percutaneous Approach (ICD-10-PCS; 2024-01-18)
PROC: 0D1N4Z4 Bypass Sigmoid Colon to Cutaneous, Percutaneous Endoscopic Approach (ICD-10-PCS; 2024-01-18)
PROC: 02HV33Z Insertion of Infusion Device into Superior Vena Cava, Percutaneous Approach (ICD-10-PCS; 2024-01-18)
PROC: 0FB04ZX Excision of Liver, Percutaneous Endoscopic Approach, Diagnostic (ICD-10-PCS; 2024-01-18)
DX: C20 Malignant neoplasm of rectum (principal); A41.9 Sepsis, unspecified organism; I81 Portal vein thrombosis; R65.21 Severe sepsis with septic shock; G92.8 Other toxic encephalopathy; C78.7 Secondary malignant neoplasm of liver and intrahepatic bile duct; N39.0 Urinary tract infection, site not specified; C78.00 Secondary malignant neoplasm of unspecified lung; E78.5 Hyperlipidemia, unspecified; I10 Essential (primary) hypertension; F17.210 Nicotine dependence, cigarettes, uncomplicated; M06.9 Rheumatoid arthritis, unspecified; K66.0 Peritoneal adhesions (postprocedural) (postinfection)
CPT/HCPCS: 88307; 71045; 71275; 74018; 74177; 76000; 80048; 80053; 80306; 80307; 81003; 81015; 82010; 82077; 82248; 82330; 82378; 82962; 82977; 83036; 83605; 83735; 83880; 84100; 84484; 85014; 85018; 85025; 85027; 85610; 85730; 86850; 86900; 86901; 87040; 87086; 87502; 87811; 88341; 88342; 93005; 93306; 93970; 97116; 97163; 97166; 97535; 99406; C1788; J1335; Q9967

== ENCOUNTER 2024-03-28 06:35 | Emergency (ER) | payer OTHER, SELFPAY ==
[2024-03-28] VITALS (8 sets, daily range): BP systolic 107–129; BP diastolic 69–86
[2024-03-28 07:35] LABS: ALT (SGPT) 41 U/L (0-50); AST (SGOT) 90 U/L (17-59); Albumin 2.7 g/dl (3.5-5.0); Alkaline Phosphatase 697 U/L (38-126); Blood Urea Nitrogen 15 mg/dl (9-20); Calcium 8.2 mg/dl (8.4-10.2); Carbon Dioxide 27 mmol/L (22-30); Chloride 103 mmol/L (98-107); Glucose 135 mg/dl (70-99); Lipase 59 U/L (23-300); Potassium 3.7 mmol/L (3.5-5.1); Sodium 134 mmol/L (135-145); Total Bilirubin 2.4 mg/dl (0.2-1.3); Total Protein 7.8 g/dl (6.3-8.2); eGFR > 60.00
[2024-03-28 07:37] LABS: % Basophils 0.3 % (0-2); % Eosinophils 1.8 % (0-6); % Immature Granulocytes 0.6 % (0-0.5); % Lymphocytes 15.4 % (20.5-51.1); % Monocytes 13.3 % (1.7-9.3); % Neutrophils 68.6 % (42.2-75.2); Absolute Eosinophils 0.1 10^3/uL (0-0.7); Absolute Lymphocytes 0.5 10^3/uL (1.2-3.4); Absolute Monocytes 0.5 10^3/uL (0.1-0.6); Absolute Neutrophils 2.3 10^3/uL (1.4-6.5); Hemoglobin 10.2 g/dL (13.0-18.0); Mean Corp Hgb Conc. 31.9 g/dL (33.0-37.0); Mean Corpuscular Hgb 27.4 pg (27.0-31.0); Mean Platelet Volume 10.3 fL (7.4-10.4); Nucleated Red Blood Cells % 0 % (-); Platelet Count 201 10^3/uL (130-400); Red Blood Cell Count 3.72 10^6/uL (4.70-6.10); Red Cell Dist. Width 15.1 % (11.5-14.5); White Blood Cell Count 3.4 10^3/uL (4.8-10.8)
--- NOTE | 2024-03-28 07:42 | ED.GENMED ---
History of Present Illness
General
Chief Complaint: Dehydration Symptoms
Time Seen by Provider: 03/28/24 07:10
History of Present Illness
History of Present Illness:
68-year-old male with history of metastatic rectal carcinoma status post sigmoid colostomy presents to the emergency department for evaluation of generalized weakness and fatigue. Was referred in to the ED by his oncologist for suspected
dehydration. Admits to poor p.o. intake recently. Not yet on chemotherapy this will start next month. Denies chest pain or dyspnea
Review of Systems
Review of Systems
Allergies reviewed?: Yes
All Other Systems: ROS reviewed and negative except as documented in HPI and ROS
Phy Exam
Physical Exam
Physical Exam:
GEN: Well appearing, NAD, WDWN
HEENT: Oral mucosa moist, no scleral icterus
Cardiac: Regular rate and rhythm, no murmurs
Lung: No respiratory distress, no tachypnea, lungs clear to auscultation bilaterally
Abdomen: Soft, generally nontender, midline ostomy with brown stool in ostomy bag
MSK: No gross deformity or injuries, no lower extremity edema
Skin: Good color, no pallor or jaundice, no rashes
Neuro: AO x3, moves all extremities freely
Psych: Calm, cooperative
Course
Orders/Labs/Results
Orders:
Orders
03/28/24 07:10
Complete Blood Count/With Diff Urgent
Comprehensive Metabolic Panel Urgent
Lipase Urgent
03/28/24 07:42
0.9% Sodium Chloride 1000 ml [Nss] 1,000 ml IV BOLUS
03/28/24 07:57
CR Chest - 2 Views Urgent
Comment:
Reason For Exam: wheezing
03/28/24 09:25
Urinalysis Reflex To Culture Urgent
Date Specimen was Collected: 03/28/24
Time Specimen was Collected: 09:24
Urine Microscopic Reflex Cult Urgent
Urine Culture Urgent
IRISH Source: U
Specimen Description:
Date Specimen was Collected: 03/28/24
Time Specimen was Collected: 09:24
03/28/24 11:00
Heparin Pf [Heparin Lock Flush] 500 unit .ROUTE .STK-MED ONE
Heparin Pf [Heparin Lock Flush] 500 unit .ROUTE .STK-MED ONE
Abnormal Lab Results
03/28/24 03/28/24
07:10 09:25
WBC 3.4 L 10^3/uL
(4.8-10.8)
RBC 3.72 L 10^6/uL
(4.70-6.10)
Hgb 10.2 L g/dL
(13.0-18.0)
Hct 32.0 L %
(39.0-52.0)
MCHC 31.9 L g/dL
(33.0-37.0)
RDW 15.1 H %
(11.5-14.5)
Absolute Lymphs (auto) 0.5 L 10^3/uL
(1.2-3.4)
Immature Gran % 0.6 H %
(0-0.5)
Lymphocytes % 15.4 L %
(20.5-51.1)
Monocytes % 13.3 H %
(1.7-9.3)
Sodium 134 L mmol/L
(135-145)
Glucose 135 H mg/dl
(70-99)
Calcium 8.2 L mg/dl
(8.4-10.2)
Total Bilirubin 2.4 H mg/dl
(0.2-1.3)
AST 90 H U/L
(17-59)
Alkaline Phosphatase 697 H U/L
(38-126)
Albumin 2.7 L g/dl
(3.5-5.0)
Urine Ketones Trace A
(Negative)
Urine Nitrite (Reflex) Positive A
(Negative)
Urine Bilirubin 2+ A
(Negative)
Urine Urobilinogen 4+ A
(Neg - 1+)
Leukocyte Esterase Rfl Trace A
(Negative)
Urine Bacteria (Reflex) Moderate A
(Negative)
03/28/24 07:10
03/28/24 07:10
Vital Signs
Initial and Last Documented VS:
Initial Vital Signs
Temp Pulse Resp BP Pulse Ox
98.0 F 83 16 109/75 96
03/28/24 06:37 03/28/24 06:37 03/28/24 06:37 03/28/24 06:37 03/28/24 06:37
Last Documented Vital Signs
Temp Pulse Resp BP Pulse Ox
98.0 F 74 22 109/69 97
03/28/24 06:37 03/28/24 11:00 03/28/24 10:30 03/28/24 11:00 03/28/24 09:00
MDM/Problems Addressed
MDM/Problems Addressed:
Patient's labs are reassuring, given IV fluids in the emergency department. Appears clinically well. Reasonable for continued outpatient management
*Critical Care Note
Total Time (30-74mins, 75-104mins- exclusive of procedures): Not Applicable
ED Attending Note
-
Portions of this chart may have been created with voice recognition software.� Occasional wrong word or��sound alike� substitutions may have occurred due to the inherent limitations of voice recognition software.
Discharge Plan
Departure
Patient Disposition: Home (Routine Discharge)
Date of Disposition: 03/28/24
Time of Disposition: 10:57
Patient with high blood pressure during this ER visit?: No
Discharge Problem:
Acute dehydration
Instructions: Dehydration, Adult (DC)
Prescriptions:
No Action
multivitamin Tablet
1 tab PO DAILY
atorvastatin 40 mg Tablet
40 mg PO DAILY
Eliquis 5 mg Tablet
10 mg PO BID 5 Days Qty: 20 0RF
Eliquis 5 mg Tablet
5 mg PO BID 60 Days Qty: 120 0RF
Referrals:
Man Celeste MD [Family Provider] -
Interventions
Interventions:
*Risk Screen - Suicide Last Done: 03/28/24 06:37
*General Assessment Last Done: 03/28/24 06:37
*Neglect/Abuse Screening Last Done: 03/28/24 06:37
*ED COVID-19 Vaccine History Last Done: 03/28/24 06:37
*Nursing Disposition Last Done: 03/28/24 12:06
ED- Cardiac Assessment Last Done: 03/28/24 07:38
ED- Neurological Assessment Last Done: 03/28/24 07:38
ED- Pulmonary Assessment Last Done: 03/28/24 07:38
Discharge Date and Time
Discharge Date/Time: 03/28/24 12:06
Print Language: SERBIAN
[2024-03-28] MEDS: NSS 1000 IV (07:49)
[2024-03-28 09:40] LABS: Urine Albumin Trace (Neg - Trace); Urine Bilirubin 2+ (Negative); Urine Character Clear (Clear); Urine Color Amber; Urine Glucose Negative (Negative); Urine Ketone Trace (Negative); Urine Leukocyte Trace (Negative); Urine Nitrite Positive (Negative); Urine Occult Blood Negative (Negative); Urine Urobilinogen 4+ (Neg - 1+)
[2024-03-28 10:52] LABS: Urine Mucus Moderate
[2024-03-28 10:53] LABS: Urine Bacteria Moderate (Negative); Urine Red Blood Cell 0-2 /HPF (0-2)
== END 2024-03-28 12:06 | disposition home or self-care (01) ==
LOC: EMR 06:35
PROVIDERS: Physician Assistant; EMERGENCY PHYSICIAN Student in an Organized Health Care Education/Training Program; FAMILY PHYSICIAN Family Medicine
DX: E86.0 Dehydration (principal); C20 Malignant neoplasm of rectum; Z93.3 Colostomy status
CPT/HCPCS: 96360; 99284; 71046; 80053; 81003; 81015; 83690; 85025; 87086